=== PATIENT | female | born 2000 | race Two or more races ===

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

== ENCOUNTER 2022-09-30 10:04 | Outpatient (AMB) | payer OTHER, SELFPAY ==
--- NOTE | 2022-09-30 10:09 | A.OFFPC_ITS ---
Vital Signs 09/30/22 10:15 Height 4 ft 10.5 in Weight 103 lb BMI 21.2 BP 90/52 L Blood Pressure Location Rt brachial Position Sitting Pulse 71 Pulse Source Pulse Oximeter Pulse Oximetry (%) 99 Oxygen Delivery Method Room Air Intake Visit Reasons: New lovxvfx-Vvhzrb-Oowrlwzvgm scoliosis Intake Note: Pt is here today as a New Patient to est care/ asthma/ congential scoliosis Is last menstrual period known: Yes Last menstrual period: 09/15/22 Allergies Seasonal Allergies Allergy (Mild, Verified 06/20/23 21:56) runny nose, sneezing Medication List - Last Reconciled 06/20/23 by Neva Rucker MD albuterol sulfate 90 mcg/actuation 2 puffs inhalation Q4-6H PRN aripiprazole 5 mg PO DAILY hydroxyzine pamoate 25 mg PO TID ibuprofen 600 mg PO Q8H PRN Symbicort 160-4.5 mcg/actuation (budesonide-formoterol) 1 inh inhalation BID NS Tobacco use date assessed: 09/30/22 HPI New jmvzqyn-Zihghl-Qbmjhdjtpk scoliosis HPI Details 21 Lady here today to establish care wit h new PCP. She has history of mild intermittent asthma currently on Symbicort and has albuterol inhaler which she rarely been needing to use. She has been having intermittent episodes of palpitations accompanied by fainting spell which started when she was 18 years old. She has been seen by pediatric cardiology, Dr. Dinh, who she saw in 2019, diagnosed with vasovagal syncope. There are no known triggers however she would have symptoms of blurry vision, feeling lightheaded, feeling warm and nauseous prior to a syncopal attack, and would regain consciousness after about 10 seconds and would be fully alert. Has not exhibited any seizure-like activity. She maintains active lifestyle. Her 2 most recent syncopal episodes were without any clear triggers, which was preceded by blurry vision followed by lightheadedness. She is also currently being followed by Psychiatry, Casie rojo, for depression and anxiety [facility] Medical History (Updated 06/20/23 @ 22:30 by Neva Rucker MD) Family history of thyroid disorder Intermittent palpitations Mild intermittent asthma COVID-19 Asthma Chromosomal abnormality Leg length discrepancy Scoliosis Dysmenorrhea Vasovagal syncope Family History Mother No problems noted. Father No problems noted. Brother ADHD Sister Chronic mental disorder ADHD Mental health disorder Maternal Grandmother Cancer Mental health disorder Paternal Grandfather Substance use disorder Paternal Grandmother Substance use disorder Maternal Uncle Mental health disorder Social History Household Members: Family Housing: House Alcohol intake: never Patient Tobacco Use Status: Never used Tobacco e-Cigarette/Vaping Use: Never Used service: No Current occupational status: employed Cognitive needs: No Hearing needs: No Vision needs: Yes Female Reproductive History Menstrual Date of last menstrual period: 09/15/22 Questionnaire PHQ-9 Over the last 2 weeks, how often have you been bothered by any of the following problems? 1. Little interest or pleasure in doing things: more than half the days 2. Feeling down, depressed, or hopeless: nearly every day 3. Trouble falling or staying asleep, or sleeping too much: nearly every day 4. Feeling tired or having little energy: more than half the days 5. Poor appetite or overeating: nearly every day 6. Feeling bad about yourself - or that you are a failure or have let yourself or your family down: several days 7. Trouble concentrating on things, such as reading the newspaper or watching television: nearly every day 8. Moving or speaking so slowly that other people could have noticed. Or the opposite - being so fidgety or restless that you have been moving around a lot more than usual: nearly every day 9. Thoughts that you would be better off or of hurting yourself in some way: several days Total score: 21 Depression Screening Interpretation: Positive Depression Screening Follow-up: Existing condition and In treatment 07797 - PHQ-9 Billing: Yes Source: Developed by Drs. Lenny Hurst, Camille Blunt, Juan Ly and colleagues, with an educational alisa from [employer]. Thrive Questionnaire Date Thrive assessed: 09/30/22 I am a: Patient What is your living situation today?: I have a steady place to live Within the past 12 months, did the food you bought not last and you didn't have the money to get more?: Never true Within the past 12 months, did you worry whether your food would run out before you got money to buy more?: Never true Do you have trouble paying for medicines?: No Do you have trouble getting transportation to medical appointments?: No Do you have trouble paying your heating and electricity bill?: No Do you have trouble taking care of your child, family member or friend?: No Do you have trouble with day-to-day activities such as bathing, preparing meals, shopping, managing finances, etc.?: No Are you currently unemployed and looking for a job?: No Are you interested in more education?: No Please select the resources that you would like help with: Transportation and Daily support Currently or been in a relationship where the following occur: no concerns reported AUDIT C Alcohol Use Questionnaire (AUDIT-C) 1. How often do you have a drink containing alcohol?: Monthly or less 2. How many drinks containing alcohol do you have on a typical day when you are drinking?: 1 or 2 3. How often do you have six or more drinks on one occasion?: Never Total Score: 1 PATRICK-7 AMB Questionnaire PATRICK-7 Date PATRICK - 7 assessed: 09/30/22 Feeling nervous, anxious, or on edge: 3 = Nearly every day Not being able to stop or control worryin = More than half the days Worrying too much about different things: 3 = Nearly every day Trouble relaxin = Nearly every day Being so restless that it is hard to sit still: 3 = Nearly every day Becoming easily annoyed or irritable: 3 = Nearly every day Feeling afraid as if something awful might happen: 3 = Nearly every day Total PATRICK-7 score (0-4 normal; 5-9 mild; 10-14 moderate; 15-21 severe): 20 Source: Developed by Drs. Lenny Hurst, Camille Blunt, Juan Ly and colleagues, with an educational alisa from [employer]. PATRICK-7 Assessment Billing PATRICK-7 Assessment Tool: PATRICK-7 Assessment 41678 Review of Systems Const All systems reviewed & are unremarkable except as noted in HPI and below Eyes Denies change in vision ENT Denies dizziness Card Reports as per HPI, Denies chest pain, Denies pedal edema, Denies lightheadedness, Denies dyspnea and Denies dyspnea on exertion Resp Denies cough, Denies dyspnea and Denies dyspnea on exertion GI Denies hematochezia and Denies change in stool character Reports no additional complaints Musc Denies abnormal gait, Denies limited range of motion, Denies muscle cramps, Denies muscle weakness, Denies numbness, Denies stiffness and Denies tingling Skin/Breast Denies breast pain, Denies breast mass and Denies rash Neuro Denies abnormal gait, Denies dizziness, Denies numbness and Denies tingling Psych Reports as per HPI Endo Reports no additional complaints Veto/Lymph Reports no additional complaints Aller/Immun Reports no additional complaints Physical exam (Primary Care) Vital Signs: Last Vital Signs Pulse 71 09/30/22 10:15 BP 90/52 L 09/30/22 10:15 Pulse Ox 99 09/30/22 10:15 Oxygen Delivery Method Room Air 09/30/22 10:15 BMI result Body Mass Index 21.2 Tobacco/Smoking Status: Tobacco use Status Tobacco use date assessed 09/30/22 09/30/22 10:17 Patient Tobacco Use Status Never used Tobacco 09/30/22 10:17 e-Cigarette/Vaping Use Never Used 09/30/22 10:17 PHQ-9: PHQ-9 Score PHQ-9: Total score 21 09/30/22 11:17 Depression Screening Interpretation: Positive Depression Screening Follow-up: Existing condition and In treatment Thrive Assessment: Date of Thrive Assessment Date Thrive assessed 09/30/22 09/30/22 10:24 Currently or been in a relationship where the following occur: no concerns reported Const General: comfortable, no acute distress and alert Orientation/consciousness: patient oriented x3 HENMT Ears: external ears normal, TM's normal bilaterally and EAC's normal General nose exam: Normal external nose present and No nasal discharge present Mouth: Normal oral and palatal mucosa present, oropharynx normal and moist mucous membranes Eyes General: appearance normal, both eyes and all related structures Conjunctivae: conjunctivae normal Sclerae: sclerae normal Pupils: Equal, round and reactive pupils present EOM: EOMs intact bilaterally Neck Neck: Yes full ROM, Yes no lymphadenopathy and Yes supple Resp Effort & Inspection: normal respiratory effort and able to speak in complete sentences Auscultation: clear to auscultation bilaterally Cardio Rate: regular rate Rhythm: regular rhythm Heart sounds: S1 normal heart sound present and S2 normal heart sound present GI Palpation (GI): Soft to palpation, nontender and no masses Auscultation: normal bowel sounds Back/Spine/Pelvis Back: No back tenderness Skin General skin exam: no rashes or lesions noted Neuro General: patient oriented x3, gait normal, tone normal, moves all extremities, Normal light touch and pain sensation and no focal motor deficits Cranial nerves: Yes CN's II-XII intact bilaterally and Yes Equal, round and reactive pupils present Cognition (Neuro): normal cognition Extrem General: Yes full ROM, Yes no joint enlargement, Yes no clubbing, cyanosis or edema and Yes no calf tenderness Psych Appearance: grossly normal and well kempt Mental Status: mental status grossly normal Speech and movement: Normal speech and movement present Affect: normal affect Attitude: cooperative Thought process: Normal thought process present Thought content: Normal thought content present and no homicidality Immunizations pneumoc 20-wilmer conj-dip cr(PF) 0.5 mL IM syringe Performing Provider: Neva Rucker MD Performing Location: [facility] Administered by: Mora Brewster CMA on 09/30/22 11:49 Dose Route Admin Location Dispensed Lot Number Expiration Date NDC Document Coordinator 0.5 mL IM Right Deltoid 0.5 mL [id number] 01/24/24 4715-4820-36 [employer] VIS Given Date VIS Provided VIS Publication Date 09/30/22 Single Vaccine 21 Eligibility Eligibility Date Funding Source Not [facility] Eligible 09/30/22 Private Assessment and Plan Assessment & Plan (1) Mild intermittent asthma: Code(s): J45.20 - Mild intermittent asthma, uncomplicated Qualifiers: Asthma complication type: uncomplicated Qualified Code(s): J45.20 - Mild intermittent asthma, uncomplicated Plan: Controlled, Symbicort discontinued due to being non formulary and switched to QVAR RediHaler, to use as directed, and albuterol inhaler as needed. Prevnar 20 given today (2) Vasovagal syncope: Comment: seen by cards (Dr Dinh) (02/12). No further w/u or f/u needed. Code(s): R55 - Syncope and collapse Plan: Still having recurrent episodes of syncopal attacks, will refer to Cardiology further evaluation and management (3) Intermittent palpitations: Code(s): R00.2 - Palpitations Plan: Referred to cardiology, TSH with free T4 ordered Orders: Orders Pneumococcal 20 Immunization 09/30/22 Z23 - Encounter for immunization TSH reflex Free T4 09/30/22 R00.2 - Palpitations, Z83.49 - Family history of other endocrine, nutritional and metabolic diseases Referrals Cardiology Referral R55 - Syncope and collapse, R00.2 - Palpitations Medications: New beclomethasone dipropionate 80 mcg/actuation (Qvar RediHaler) administer with spacer 1 inh inhalation Q12H 10.6 grams 0RF J45.20 - Mild intermittent asthma, uncomplicated Coding Level of Care Code New Pt Level 3 (31573) Diagnoses Mild intermittent asthma without complication J45.20 Asthma complication type: uncomplicated Vasovagal syncope R55 Intermittent palpitations R00.2 Additional Codes PATRICK-7 Assessment Billing - PATRICK-7 Assessment Tool: PATRICK-7 Assessment [id number] ([id number])
[2022-09-30 10:15] VITALS: BP 90/52; PULSE 71; O2SAT 99; BMI 21.2
== END 2022-09-30 11:18 | disposition home or self-care (01) ==
PROVIDERS: PCP Internal Medicine; Visit Provider Internal Medicine
DX: J45.20 Mild intermittent asthma, uncomplicated (principal); R55 Syncope and collapse; R00.2 Palpitations
CPT/HCPCS: 99203; 99499

== ENCOUNTER 2022-12-22 11:00 | Outpatient (AMB) | payer OTHER, SELFPAY ==
--- NOTE | 2022-12-22 11:08 | MHC.OFFVIS ---
Intake Vital Signs 12/22/22 11:10 12/22/22 11:23 12/22/22 11:25 Height 4 ft 10 in Weight 103 lb 9.876 oz BMI 21.7 BP 100/62 109/65 103/64 Blood Pressure Location Lt brachial Lt brachial Lt brachial Position Supine Sitting Standing Pulse 71 72 71 Intake Visit Reasons: NPV/Syncope/Palpitations Intake Note: New patient dx syncope and palpitations with ekg and orthostatic bp Director Weights And Measures Required: No Social Human Services Assistants: Social Human Services Assistants Present Accompanied by: Mother Allergies Seasonal Allergies Allergy (Mild, Verified 09/30/22 10:37) runny nose, sneezing Medication List - Last Reconciled 12/22/22 by Rey Dixon MD albuterol sulfate 90 mcg/actuation 2 puffs inhalation Q4-6H PRN hydroxyzine pamoate 25 mg PO TID ibuprofen 600 mg PO Q8H PRN Symbicort 160-4.5 mcg/actuation (budesonide-formoterol) 1 inh inhalation BID NS HPI HPI Comments History of Present Illness Details Thank you for referring Serenity in cardiology consultation today for syncope. She is a pleasant 22-year-old female, accompanied by her mother. She has history of asthma which is mild and intermittent. She has had history of syncope since age of 18. She describes multiple events although she is most concerned about to recent events. The 1st event happen in the setting of her noxious stimuli at age of 18. Symptoms are very typical with symptoms of blurry vision, feeling lightheaded, feeling warm and nauseous. Patient's then passes out. Noted by observers to be very pale and diaphoretic. Patient usually regained consciousness within 10 seconds and is fully alert. She has no seizure-like activity. Mother is worried as she has a child had a murmur. However she has not noted any significant structural heart issues. She is otherwise very active. She maintains active lifestyle. She does not drink adequate amount of fluid. Her job also in [employer] prolonged standing. It 2 most recent episodes were without any clear triggers but were triggered in an upright position. Both of them had clear blurry vision followed by lightheadedness. Patient clearly knows that if she does not take care of which she passes out. [facility] Medical History Asthma Chromosomal abnormality COVID-19 Dysmenorrhea Family history of thyroid disorder Intermittent palpitations Leg length discrepancy Mild intermittent asthma Scoliosis Syncope Vasovagal syncope Family History Mother No problems noted. Father No problems noted. Brother ADHD Sister Chronic mental disorder ADHD Mental health disorder Maternal Grandmother Cancer Mental health disorder Paternal Grandfather Substance use disorder Paternal Grandmother Substance use disorder Maternal Uncle Mental health disorder Social History Household Members: Family Housing: House Alcohol intake: never Patient Tobacco Use Status: Never used Tobacco e-Cigarette/Vaping Use: Never Used service: No Current occupational status: employed Cognitive needs: No Hearing needs: No Vision needs: Yes Review of Systems Const Denies chills, Denies daytime sleepiness, Denies fatigue, Denies fever(s), Denies frequent falls, Denies poor appetite, Denies snoring, Denies stops breathing during sleep, Denies weakness, Denies weight gain and Denies weight loss Eyes Denies loss of vision ENT Denies dizziness and Denies hearing loss Card Denies chest pain, Denies claudication, Denies leg edema, Denies lightheadedness, Denies palpitations, Denies dyspnea, Denies dyspnea on exertion and Denies orthopnea Resp Denies cough, Denies excessive phlegm production, Denies dyspnea, Denies dyspnea on exertion, Denies snoring and Denies wheezing GI Denies abdominal pain, Denies hematochezia, Denies change in bowel habits, Denies nausea and Denies vomiting Denies urinary frequency and Denies dysuria Musc Denies arthralgias, Denies muscle weakness, Denies numbness and Denies other (frequent falls) Skin/Breast Denies nail changes and Denies rash Neuro Denies Abnormal speech present, Denies dizziness, Denies frequent falls, Denies loss of vision, Denies memory loss, Denies numbness and Denies weakness Psych Denies depression and Denies memory loss Endo Denies fatigue and Denies palpitations Veto/Lymph Reports easy bruising and Reports other (anemia) Aller/Immun Denies wheezing Physical Exam Vital Signs: Last Vital Signs Pulse 71 12/22/22 11:25 BP 103/64 12/22/22 11:25 BMI result Body Mass Index 21.7 Const General: cooperative, comfortable, no acute distress, alert and awake Nutritional Appearance: well nourished and thin Orientation/consciousness: patient oriented x3 Limitations: no limitations HEENT Head: Yes normocephalic and Yes atraumatic Neck Neck: Yes trachea midline, Yes supple and Yes no JVD Resp Effort & Inspection: normal respiratory effort Auscultation: clear to auscultation bilaterally Cardio Jugular venous distension: no JVD Rate: regular rate Rhythm: regular rhythm Heart sounds: S1 normal heart sound present, S2 normal heart sound present, no click, no gallops, no murmurs and no rubs GI Auscultation: normal bowel sounds Skin General skin exam: no rashes or lesions noted Neuro General: patient oriented x3 and no focal motor deficits Speech: No Abnormal speech present Extrem General: Yes no clubbing, cyanosis or edema Office Procedures EKG Details: EKG shows normal sinus rhythm with normal EKG with normal axis and normal intervals with no preexcitation [id number], Complete Assessment & Plan Assessment & Plan (1) Syncope: Code(s): R55 - Syncope and collapse Plan: patient presents with symptoms are highly consistent with vasovagal or reflex syncope. Had a detailed discussion about the pathophysiology of vasovagal syncope. We discussed about potential trigger mechanisms. We discussed about interventions. Would like to further test her autonomic function with head-up tilt-table test and to assess for hemodynamic response. If she has significant bradycardic response and/ or cardio inhibitory vasovagal syncope could benefit from pacer therapy. Advised to maintain adequate hydration and salt intake. Discussed about lifestyle modification as well and avoidance of agent such as caffeine and alcohol. Also avoidance of prolonged standing was discussed. Achieving supine and or sitting position with abdominal compression can also abort of full syncopal episode and this was discussed with her. Follow up in the clinic after testing. Thank you for allowing me to partake in her care Orders: Orders CA echo transthoracic complete Today R55 - Syncope and collapse ECG holter monitor 48 hour Today R55 - Syncope and collapse ECG Tilt Table Test Today R55 - Syncope and collapse Coding Level of Care Code New Pt Level 4 (65370) Diagnoses Syncope R55 CPT Codes EKG - CPT: [id number], Complete ([id number])
[2022-12-22 11:10] VITALS: BP 100/62; PULSE 71; BMI 21.7
[2022-12-22 11:23] VITALS: BP 109/65; PULSE 72
[2022-12-22 11:25] VITALS: BP 103/64; PULSE 71
== END 2022-12-22 11:43 | disposition home or self-care (01) ==
PROVIDERS: PCP Internal Medicine; Referring Provider Internal Medicine; Visit Provider Internal Medicine Cardiovascular Disease
DX: R55 Syncope and collapse (principal)
CPT/HCPCS: 93010; 99204

== ENCOUNTER → 2022-12-22 11:00 | Outpatient (BNVA) | payer OTHER, SELFPAY | PROVIDERS: PCP Internal Medicine; Referring Provider Internal Medicine; Visit Provider Internal Medicine Cardiovascular Disease | DX: R55 Syncope and collapse (principal) | CPT/HCPCS: 93005; 99202 ==

== ENCOUNTER → 2023-01-20 07:51 | Outpatient (REF) | payer OTHER, SELFPAY ==
--- NOTE | 2023-01-20 08:10 | HM_ITS ---
Conclusion: 1. Patient was monitored for total period of 2 days 2. Baseline was normal sinus with average heart of 70 beats per minute 3. Rare PACs noted next 4. No significant pauses noted 5. Patient reported 4 events with symptoms of lightheadedness or fast heart rate that correlated with sinus rhythm MTDD
--- NOTE | 2023-01-20 08:10 | CA_ITS ---
Transthoracic Echocardiogram Patient (Last, First, Middle): Jocelyn Bowens, Gender: Female Date of : 2000 Age: 22 Procedure Date: 01/20/2023 Procedure Type: Transthoracic Echocardiogram Location: OP Height: 149.86 cm Weight: 46.72 kg BSA: 1.39 m2 Heart Rate: bpm BP: 96 / 62 mmHg Crutch Maker: TEJA Referring MD: Rey Dixon MD Front Sight Attacher: Rey Dixon MD Symptoms: R55 - Syncope and collapse Study Quality: Good ECG Rhythm: Sinus Conclusions: - Normal study Findings Left Ventricle Normal left ventricular size, thickness, and systolic function. The visually estimated ejection fraction is between 60-65%. Diastolic function is normal for age. Peak GLS is -19%, within normal limits. Right Ventricle Normal right ventricular cavity size and systolic function. Atria Both atria are normal in size. Interatrial shunt cannot be excluded. Aortic Valve Normal aortic valve structure and function. There is no aortic valve stenosis. There is no aortic valve regurgitation. Mitral Valve Normal mitral valve structure and function. There is trace mitral valve regurgitation. There is no mitral valve stenosis. Pulmonic Valve The pulmonic valve is likely normal. There is trace to mild pulmonic valve regurgitation. Tricuspid Valve Normal tricuspid valve structure. There is trace tricuspid valve regurgitation. The right ventricular systolic pressure is normal. The right ventricular systolic pressure is 20 mmHg. Normal right atrial pressure. There is no evidence of pulmonary hypertension. Great Vessels All visible segments of the aorta are normal in size. The pulmonary artery was not well visualized. Venous The inferior vena cava is normal in size and collapses greater than 50% with inspiration. Pericardium/Pleural There is no evidence of pericardial effusion. Prior Study Comparison No prior study available for comparison. Measurements 2D Linear Measurements IVSd: 0.80 0.6-0.9/0.6-1.0 cm LVIDd: 3.70 3.9-5.3/4.2-5.9 cm LVIDd Index: 2.66 2.4-3.2/2.2-3.1 cm/m2 LVIDs: 2.40 2.0-3.6 cm LVPWd: 0.70 0.7-1.1 cm LA Diam: 2.30 2.7-3.8/3.0-4.0 cm LAIDs Index: 1.65 1.5-2.3 cm/m2 LV Mass: 93.55 67-162/88-224 g LV Mass Index: 67.30 43-95/49-115 g/m2 LVOT Diam: 1.80 3.0+(-)1.3 cm 2D Systolic Function EF 4C: 61.80 >55% EF 2C: 65.30 >55% EF BiP: 64.20 >55% Mitral Valve MV Pk E: 1.02 MV PK A: 0.30 MV Decel Time: 213.00 E/A: 3.40 E'Lateral: 17.80 E'Medial: 14.80 E/E' Med: 6.90 E/E' Lat: 5.70 PHT: 62.00 MVA PHT: 3.55 Decel Ingham: 4.79 Aortic Valve AoV Pk Minh: 1.29 AoV Mn Minh: 0.85 AoV VTI: 0.33 AoV Pk Grad: 7.00 Aov Mn Grad: 3.00 SUSAN Cont.VTI: 1.60 LVOT LVOT Pk Minh: 0.81 LVOT Mn Minh: 0.57 LVOT VTI: 0.21 LVOT Pk Grad: 3.00 LVOT Mn Grad: 1.00 LVOT Diam: 1.80 LVOT Area: 2.54 Diastolic Function MV Pk E: 1.02 MV Pk A: 0.30 E/A: 3.40 E'Medial: 14.80 E/E' Med: 6.90 E' Laterial: 17.80 E/E' Lat: 5.70 Right Ventricle TAPSE (mm): 28.00 TVS' Minh: 12.20 Tricuspid Valve TR Pk Minh: 2.08 TR Pk Grad: 17.00 RA Press: 3.00 RVSP: 20.00 Great Vessels Aorta Sinus of Valsalva: 2.70 2.0-3.5 cm Ao Asc: 2.00 2.1-3.4 cm Ao Arch: 2.10 Updated in Other Vendor System with Status of Final Rey Dixon MD electronically signed on 01/20/2023 4:27:49 PM with status of Final
== END ==
LOC: HO.CARD 07:51
PROVIDERS: PCP Internal Medicine; Visit Provider Internal Medicine Cardiovascular Disease
DX: R55 Syncope and collapse (principal)
CPT/HCPCS: 93225; 93306

== ENCOUNTER → 2023-01-20 08:10 | Outpatient (BNV) | payer OTHER, SELFPAY | PROVIDERS: PCP Internal Medicine; Visit Provider Internal Medicine Cardiovascular Disease | DX: I49.1 Atrial premature depolarization (principal) | CPT/HCPCS: 93227; 93306 ==

== ENCOUNTER 2023-03-09 08:00 | Outpatient (AMB) | payer OTHER, SELFPAY ==
[2023-03-09 08:13] VITALS: BP 104/64; PULSE 78; BMI 20.5
--- NOTE | 2023-03-09 08:13 | A.OFFVIS_ITS ---
Intake Vital Signs 03/09/23 08:13 Height 4 ft 10 in Weight 98 lb 5.219 oz BMI 20.5 BP 104/64 Pulse 78 Pulse Source Pulse Oximeter Intake Visit Reasons: fu tilt/echo/48 hr holter (NS) Correctional Supervising Cook Required: No Allergies Seasonal Allergies Allergy (Mild, Verified 03/09/23 08:15) runny nose, sneezing Medication List - Last Reconciled 03/09/23 by Janeen Perkins, GUARD CAPTAIN-C albuterol sulfate 90 mcg/actuation 2 puffs inhalation Q4-6H PRN aripiprazole 5 mg PO DAILY hydroxyzine pamoate 25 mg PO TID ibuprofen 600 mg PO Q8H PRN Symbicort 160-4.5 mcg/actuation (budesonide-formoterol) 1 inh inhalation BID NS HPI fu tilt/echo/48 hr holter (NS) HPI Details Austenenibrian is a 23-year-old female with past medical history of syncopal events who recently underwent cardiac testing and now presents for follow-up. Today she reports that she has not had any recurrent syncope since her last visit. Her last episode did occur with her talking on the phone in her home without any known trigger. She has episodes of lightheadedness at times with no presyncope. She will feel intermittent heart palpitations, not clearly associated with lightheadedness. No chest discomfort at rest with activity. No concerning shortness of breath, PND, orthopnea or edema. She has good activity tolerance. Mother is present. [facility] Medical History Syncope Family history of thyroid disorder Intermittent palpitations Mild intermittent asthma COVID-19 Asthma Chromosomal abnormality Leg length discrepancy Scoliosis Dysmenorrhea Vasovagal syncope Family History Mother No problems noted. Father No problems noted. Brother ADHD Sister Chronic mental disorder ADHD Mental health disorder Maternal Grandmother Cancer Mental health disorder Paternal Grandfather Substance use disorder Paternal Grandmother Substance use disorder Maternal Uncle Mental health disorder Social History Household Members: Family Housing: House Alcohol intake: never Patient Tobacco Use Status: Never used Tobacco e-Cigarette/Vaping Use: Never Used service: No Current occupational status: employed Cognitive needs: No Hearing needs: No Vision needs: Yes Review of Systems Const All systems reviewed & are unremarkable except as noted in HPI and below ENT Denies dizziness Card Denies chest pain, Denies chest pain at rest, Denies chest pain with activity, Denies rapid heart rate, Denies pedal edema, Denies edema, Denies leg edema, Denies lightheadedness, Denies palpitations, Denies dyspnea, Denies dyspnea on exertion and Denies orthopnea Resp Denies cough, Denies dyspnea and Denies dyspnea on exertion GI Denies hematochezia and Denies change in stool character Musc Denies abnormal gait, Denies limited range of motion, Denies muscle cramps, Denies muscle weakness, Denies numbness, Denies radiating pain into limb, Denies stiffness and Denies tingling Neuro Denies abnormal gait, Denies dizziness, Denies numbness and Denies tingling Endo Denies palpitations Physical Exam Vital Signs: Last Vital Signs Pulse 78 03/09/23 08:13 BP 104/64 03/09/23 08:13 BMI result Body Mass Index 20.5 Const General: cooperative, healthy appearing, comfortable and no acute distress Orientation/consciousness: patient oriented x3 Neck Neck: Yes normal visual inspection and Yes no JVD Carotids: normal carotid upstroke Resp Effort & Inspection: normal respiratory effort Auscultation: clear to auscultation bilaterally, no crackles, no rales, no rhonchi and no wheezes Cardio Jugular venous distension: no JVD Rate: regular rate Rhythm: regular rhythm Heart sounds: S1 normal heart sound present, S2 normal heart sound present, no murmurs and no rubs Neuro General: patient oriented x3 Extrem General: Yes normal to inspection, No no pedal edema and No calf tenderness Psych Appearance: grossly normal Mental Status: mental status grossly normal Speech and movement: Normal speech and movement present Assessment & Plan Assessment & Plan (1) Vasovagal syncope: Comment: seen by cards (Dr Dinh) (02/12). No further w/u or f/u needed. Code(s): R55 - Syncope and collapse Plan: History of syncopal events since age 18. Episodes involve lightheadedness, blurred vision, feeling warm and nauseous. Symptoms suggestive of vasovagal syncope. Echocardiogram was done 01/20/2023 which was normal. Holter monitor done 01/20/2023 for 2 days showed sinus rhythm with average heart rate 70, rare PACs, symptoms of lightheadedness and fast heart rate correlated with sinus rhythm. She underwent a tilt-table test on 02/23/2023 with presyncopal event, documented junctional rhythm with heart rate into the 30s, hypotension. Confirm diagnosis of vasovagal syncope. All test results reviewed with her in detail. Patient has been instructed on increasing fluid intake, increased salt intake. Recognizing symptoms, avoiding any known triggers, sitting or laying down if she develops symptoms. Avoid prolonged standing if able. No indication for pacemaker placement. Cardiology follow-up to re-evaluate condition in 6 months, sooner if needed. Coding Level of Care Code Est Pt Level 3 (70690) Diagnoses Vasovagal syncope R55 Time Spent (min) 24
== END 2023-03-09 08:44 | disposition home or self-care (01) ==
PROVIDERS: PCP Internal Medicine; Visit Provider Nurse Practitioner Family
DX: R55 Syncope and collapse (principal)
CPT/HCPCS: 99213

== ENCOUNTER → 2023-03-09 08:00 | Outpatient (BNVA) | payer OTHER, SELFPAY | PROVIDERS: PCP Internal Medicine; Visit Provider Nurse Practitioner Family | DX: R55 Syncope and collapse (principal) | CPT/HCPCS: 99212 ==

== ENCOUNTER 2023-09-13 08:45 | Outpatient (AMB) | payer OTHER, SELFPAY ==
[2023-09-13 08:49] VITALS: BP 110/70; PULSE 67; BMI 20.3
--- NOTE | 2023-09-13 08:49 | MHC.OFFVIS ---
Vital Signs 09/13/23 08:49 Height 4 ft 10 in Weight 97 lb 0.054 oz BMI 20.3 BP 110/70 Blood Pressure Location Lt brachial Pulse 67 Intake Visit Reasons: 6 mth f/up Intake Note: 6 month follow-up feeling good Kiln Car Repairer Required: No Vein Access Technician: Vein Access Technician Present Accompanied by: Mother Allergies Seasonal Allergies Allergy (Mild, Verified 06/20/23 21:56) runny nose, sneezing Medication List - Last Reconciled 09/13/23 by Rey Dixon MD albuterol sulfate 90 mcg/actuation 2 puffs inhalation Q4-6H PRN aripiprazole 5 mg PO DAILY hydroxyzine pamoate 25 mg PO TID ibuprofen 600 mg PO Q8H PRN Symbicort 160-4.5 mcg/actuation (budesonide-formoterol) 1 inh inhalation BID NS HPI Comments Details: Se[facility]ity comes for follow-up. They feel that their symptoms of syncope/near-syncope have improved although she continues to have episode. She has increased her fluid intake but only drinking about 38 oz a day. Has also increase her salt intake. They have not had any significant full syncopal episode. [facility] Medical History Family history of thyroid disorder Intermittent palpitations Mild intermittent asthma COVID-19 Asthma Chromosomal abnormality Leg length discrepancy Scoliosis Dysmenorrhea Vasovagal syncope Family History Mother No problems noted. Father No problems noted. Brother ADHD Sister Chronic mental disorder ADHD Mental health disorder Maternal Grandmother Cancer Mental health disorder Paternal Grandfather Substance use disorder Paternal Grandmother Substance use disorder Maternal Uncle Mental health disorder Social History Household Members: Family Housing: House Alcohol intake: never Patient Tobacco Use Status: Never used Tobacco e-Cigarette/Vaping Use: Never Used service: No Current occupational status: employed Cognitive needs: No Hearing needs: No Vision needs: Yes Review of Systems Const Denies chills, Denies fatigue, Denies fever(s), Denies frequent falls, Denies weakness, Denies weight gain and Denies weight loss ENT Denies dizziness Card Denies chest pain, Denies leg edema, Denies lightheadedness, Denies palpitations, Denies dyspnea, Denies dyspnea on exertion, Denies orthopnea and Denies other (loss of consciousness) Resp Denies cough, Denies dyspnea and Denies dyspnea on exertion GI Denies hematochezia and Denies change in stool character Musc Denies abnormal gait, Denies muscle weakness, Denies numbness, Denies radiating pain into limb and Denies tingling Neuro Denies abnormal gait, Denies dizziness, Denies frequent falls, Denies numbness, Denies tingling and Denies weakness Endo Denies fatigue and Denies palpitations Physical Exam Vital Signs: Last Vital Signs Pulse 67 09/13/23 08:49 BP 110/70 09/13/23 08:49 BMI result Body Mass Index 20.3 Const General: cooperative, healthy appearing, comfortable and no acute distress Orientation/consciousness: patient oriented x3 Neck Neck: Yes normal visual inspection and Yes no JVD Carotids: normal carotid upstroke Resp Effort & Inspection: normal respiratory effort Auscultation: clear to auscultation bilaterally, no crackles, no rales, no rhonchi and no wheezes Cardio Jugular venous distension: no JVD Rate: regular rate Rhythm: regular rhythm Heart sounds: S1 normal heart sound present, S2 normal heart sound present, no murmurs and no rubs Neuro General: patient oriented x3 Extrem General: Yes normal to inspection, No no pedal edema and No calf tenderness Psych Appearance: grossly normal Mental Status: mental status grossly normal Speech and movement: Normal speech and movement present Assessment & Plan Assessment & Plan (1) Vasovagal syncope: Comment: seen by cards (Dr Dinh) (02/12). No further w/u or f/u needed. Code(s): R55 - Syncope and collapse Category: Medical Plan: Vasovagal syncope as noted by tilt-table testing. Mechanism of this was discussed again. I have advised them to significantly increase her fluid intake to up to 80 oz a day. Also maximize their salt intake. Orthostatic precautions were discussed. They showed understanding. I would avoid starting any pharmacotherapy at this point in time. Overall benign nature of vasovagal syncope was discussed. I would suggest given their job to wear compression stockings thigh length to help with theire orthostatic symptoms. Will follow up in the clinic in 1 year's time, sooner p.r.n.. Thank you for allowing me to partake in their care Coding Level of Care Code Est Pt Level 3 (57342) Diagnoses Vasovagal syncope R55
== END 2023-09-13 09:05 | disposition home or self-care (01) ==
PROVIDERS: PCP Internal Medicine; Visit Provider Internal Medicine Cardiovascular Disease
DX: R55 Syncope and collapse (principal)
CPT/HCPCS: 99213

== ENCOUNTER → 2023-09-13 08:45 | Outpatient (BNVA) | payer OTHER, SELFPAY | PROVIDERS: PCP Internal Medicine; Visit Provider Internal Medicine Cardiovascular Disease | DX: R55 Syncope and collapse (principal) | CPT/HCPCS: 99212 ==

== ENCOUNTER 2023-10-08 09:27 | Outpatient (AMB) | payer OTHER, SELFPAY ==
--- NOTE | 2023-10-08 09:28 | MHC.PC.OV ---
Vital Signs 10/08/23 09:30 Height 4 ft 10 in Weight 97 lb BMI 20.3 BP 108/68 Blood Pressure Location Lt brachial Position Sitting Pulse 67 Pulse Source Pulse Oximeter Pulse Oximetry (%) 99 Oxygen Delivery Method Room Air Intake Visit Reasons: PE Intake Note: pt is here for annual PE. Has not had pap Allergies Seasonal Allergies Allergy (Mild, Verified 10/08/23 09:48) runny nose, sneezing Medication List - Last Reconciled 10/08/23 by RAFFI Louie albuterol sulfate 90 mcg/actuation 2 puffs inhalation Q4-6H PRN aripiprazole 7.5 mg PO DAILY comp.stocking,thigh,long,small As directed hydroxyzine pamoate 25 mg PO TID ibuprofen 600 mg PO Q8H PRN Symbicort 160-4.5 mcg/actuation (budesonide-formoterol) 1 inh inhalation BID NS Tobacco use date assessed: 10/08/23 Dental Screening Dental Screen Date: 10/08/23 Did you have a dental visit in the last 12 months?: No Did you have a dental problem in the last 6 months where you did not have access to dental care?: No Was dental information given to patient?: Yes HPI HPI Comments History of Present Illness Details Patient is 23-year-old who I am meeting for the 1st time. Patient is up-to-date with Tdap. She was given Prevnar 20 at previous appointment. Will order fasting labs today. Patient has a past medical history significant for: Intermittent asthma-utilizes Symbicort and albuterol inhaler with good effect. Use of albuterol is infrequent. Anxiety depression-patient has establish care with psychiatry. Utilizing aripiprazole 7.5 mg p.o. daily and hydroxyzine 25 mg TID p.r.n. Vasovagal syncope-patient had positive tilt-table test at [facility]. He does have establish care with [facility]. Has been instructed to increase salt and water intake. Having less frequent episodes over the past year. [facility] Medical History Family history of thyroid disorder Intermittent palpitations Mild intermittent asthma COVID-19 Asthma Chromosomal abnormality Leg length discrepancy Scoliosis Dysmenorrhea Vasovagal syncope Surgical History No pertinent past surgical history Family History Mother No problems noted. Father No problems noted. Brother ADHD Sister Chronic mental disorder ADHD Mental health disorder Maternal Grandmother Cancer Mental health disorder Paternal Grandfather Substance use disorder Paternal Grandmother Substance use disorder Maternal Uncle Mental health disorder Social History Household Members: Family Housing: House Alcohol intake: never Patient Tobacco Use Status: Never used Tobacco e-Cigarette/Vaping Use: Never Used Substance Use Type: Marijuana service: No Current occupational status: employed Cognitive needs: No Hearing needs: No Vision needs: Yes Questionnaire PHQ-9 Over the last 2 weeks, how often have you been bothered by any of the following problems? 1. Little interest or pleasure in doing things: more than half the days 2. Feeling down, depressed, or hopeless: more than half the days 3. Trouble falling or staying asleep, or sleeping too much: nearly every day 4. Feeling tired or having little energy: nearly every day 5. Poor appetite or overeating: several days 6. Feeling bad about yourself - or that you are a failure or have let yourself or your family down: several days 7. Trouble concentrating on things, such as reading the newspaper or watching television: not at all 8. Moving or speaking so slowly that other people could have noticed. Or the opposite - being so fidgety or restless that you have been moving around a lot more than usual: not at all 9. Thoughts that you would be better off or of hurting yourself in some way: several days Total score: 13 Depression Screening Interpretation: Positive (Patient had a rib preserve all increased from 5 to 7.5 mg by Psychiatry.) Depression Screening Follow-up: In treatment and Change in Medication Depression Screening Done: Yes 62274 - PHQ-9 Billing: Yes Source: Developed by Drs. Lenny uHrst, Camille Blunt, Juan Ly and colleagues, with an educational alisa from [employer]. Thrive Questionnaire Date Thrive assessed: 10/08/23 I am a: Patient What is your living situation today?: I have a steady place to live Within the past 12 months, did the food you bought not last and you didn't have the money to get more?: Never true Within the past 12 months, did you worry whether your food would run out before you got money to buy more?: Never true Do you have trouble paying for medicines?: No Do you have trouble getting transportation to medical appointments?: No Do you have trouble paying your heating and electricity bill?: No Do you have trouble taking care of your child, family member or friend?: No Do you have trouble with day-to-day activities such as bathing, preparing meals, shopping, managing finances, etc.?: No Are you currently unemployed and looking for a job?: No Are you interested in more education?: No Please select the resources that you would like help with: None Currently or been in a relationship where the following occur: no concerns reported THRIVE Score: 0 AUDIT C Alcohol Use Questionnaire (AUDIT-C) 1. How often do you have a drink containing alcohol?: 2-4 times a month 2. How many drinks containing alcohol do you have on a typical day when you are drinking?: 1 or 2 3. How often do you have six or more drinks on one occasion?: Less than monthly Total Score: 3 PATRICK-7 AMB Questionnaire PATRICK-7 Date PATRICK - 7 assessed: 10/08/23 Feeling nervous, anxious, or on edge: 1 = Several days Not being able to stop or control worryin = Several days Worrying too much about different things: 1 = Several days Trouble relaxin = Not at all Being so restless that it is hard to sit still: 0 = Not at all Becoming easily annoyed or irritable: 3 = Nearly every day Feeling afraid as if something awful might happen: 1 = Several days Total PATRICK-7 score (0-4 normal; 5-9 mild; 10-14 moderate; 15-21 severe): 7 Source: Developed by Drs. Lenny Hurst, Camille Blunt, Juan Ly and colleagues, with an educational alisa from [employer] PATRICK-7 Assessment Billing PATRICK-7 Assessment Tool: PATRICK-7 Assessment 32397 Review of Systems Const All systems reviewed & are unremarkable except as noted in HPI and below Skin/Breast Reports rash (Abdomen) Physical exam (Primary Care) Care Plan Goal for BP management: BP controlled Tobacco/Smoking Status: Tobacco use Status Tobacco use date assessed 09/30/22 09/30/22 10:17 Patient Tobacco Use Status Never used Tobacco 09/30/22 10:17 e-Cigarette/Vaping Use Never Used 09/30/22 10:17 Depression Screening Interpretation: Positive (Patient had a rib preserve all increased from 5 to 7.5 mg by Psychiatry.) Depression Screening Follow-up: In treatment and Change in Medication Thrive Assessment: Date of Thrive Assessment Date Thrive assessed 09/30/22 09/30/22 10:24 Currently or been in a relationship where the following occur: no concerns reported Forms completed: Health Care Proxy Time spent: 1-15 minutes, on File Const Other: Appearance: Alert.? Oriented X3.? No acute distress.? Head: Normocephalic. Eyes: Pupils equal, round and reactive to light.?Sclera white. ENT: Pharynx normal.?TM intact and pearly nava. Neck: Normal inspection.? Neck supple.? CVS: Normal heart rate and rhythm.? Pulses normal.? Respiratory: No respiratory distress.? Breath sounds normal.? Abdomen: Soft and nontender.? Skin: Small erythematous patches on abdomen. No discharge. No signs of infection. Extremities: No lower extremity edema.? No calf ttp. 5/5 strength to bilateral upper and lower extremities Back: No midline tenderness, no C-spine tenderness, full range of motion, no CVA tenderness bilaterally Neuro: Oriented X 3.? No motor deficit.? No sensory deficit. CN 2-12 intact Assessment and Plan Assessment & Plan (1) Encounter for physical examination: Comment: Will draw labs today. Patient had healthcare proxy she form scanned in uploaded to her file. Had Prevnar 20 immunization at previous visit 1 year prior. Patient will get ambulatory technologist referral today. Code(s): Z00.00 - Encounter for general adult medical examination without abnormal findings (2) Vasovagal syncope: Comment: Patient has establish care with Cardiology. Has been ordered compressions stockings by them has not yet utilize them will pick them up today. Patient has also been educated to increase her fluid intake. Code(s): R55 - Syncope and collapse (3) Mild intermittent asthma: Comment: Utilizing Symbicort with good effect. Infrequent use of albuterol sulfate Code(s): J45.20 - Mild intermittent asthma, uncomplicated Qualifiers: Asthma complication type: uncomplicated Qualified Code(s): J45.20 - Mild intermittent asthma, uncomplicated (4) Anxiety: Comment: Has establish care with psychiatry. Taking aripiprazole 7.5 mg p.o. daily and hydroxyzine 25 mg t.i.d. p.r.n.. Code(s): F41.9 - Anxiety disorder, unspecified (5) Tinea versicolor: Comment: Fungal infection on abdomen. 3-4 red oval-shaped patches. Will give ketoconazole cream to be applied as prescribed. Patient has been educated to try to keep the area dry. Code(s): B36.0 - Pityriasis versicolor Plan: draw labs Plan Follow-up physical exam 1 year Orders: Orders TSH reflex Free T4 Today Z13.29 - Encounter for screening for other suspected endocrine disorder Lipid Panel Today Z13.220 - Encounter for screening for lipoid disorders Complete Blood Count Auto Diff Today Z13.0 - Encounter for screening for diseases of the blood and blood-forming organs and certain disorders involving the immune mechanism Comprehensive Met. 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 Z12.4 - Encounter for screening for malignant neoplasm of cervix Medications: New ketoconazole 2% 1 appl topical BID 30 grams 0RF Refilled albuterol sulfate 90 mcg/actuation 2 puffs inhalation Q4-6H PRN 6.7 grams 0RF shortness of breath or wheezing Coding Level of Care Code Est Pt Prev Care 18-39y([id number]) Diagnoses Encounter for physical examination Z00.00 Vasovagal syncope R55 Mild intermittent asthma without complication J45.20 Asthma complication type: uncomplicated Anxiety F41.9 Tinea versicolor B36.0 Additional Codes PATRICK-7 Assessment Billing - PATRICK-7 Assessment Tool: PATRICK-7 Assessment 18748 ([id number]) Vital Signs *Quality* - Time spent: 1-15 minutes, on File ([id number]) Time Spent (min) 28
[2023-10-08 09:30] VITALS: BP 108/68; PULSE 67; O2SAT 99; BMI 20.3
== END 2023-10-08 10:00 | disposition home or self-care (01) ==
PROVIDERS: PCP Internal Medicine; Visit Provider Nurse Practitioner Primary Care
DX: Z00.00 Encounter for general adult medical examination without abnormal findings (principal); R55 Syncope and collapse; J45.20 Mild intermittent asthma, uncomplicated; F41.9 Anxiety disorder, unspecified; B36.0 Pityriasis versicolor
CPT/HCPCS: 1123F; 96127; 99395

== ENCOUNTER 2023-10-08 10:01 | Outpatient (REF) | payer OTHER, SELFPAY ==
[2023-10-08 13:26] LABS: MANUAL DIFF FLAG NO
[2023-10-08 13:34] LABS: Appearance Urine Turbid; Color Urine Yellow; Glucose Urine UA Negative (Negative); Leukocyte Esterase Urine Small (1+) (Negative); Nitrite Urine Negative (Negative); PH 5.5 (5.0-9.0); Specific Gravity - Urine 1.025 (1.005-1.025); UMIC TRIGGER UACC YES; Urine Blood Negative (Negative); Urine Ketones Trace mg/dL (Negative); Urine Protein Trace mg/dL (Neg-Trace)
[2023-10-08 13:47] LABS: Bacteria Urine 1+ (None Seen); Basophils Percent Auto 0.4 % (0-2); Eosinophils Absolute Auto 0.3 X10*3/uL (0.0-0.4); Eosinophils Percent Auto 4.7 % (0-4); Hemoglobin 14.1 g/dl (12.0-16.0); Hyaline Casts Urine 0-2 /LPF (0-2); Imm Gran Abs Auto 0.01 X10*3/uL (0.00-0.03); Imm Gran Pct Auto 0.1 % (0.0-0.4); Lymphocytes Absolute Auto 2.7 X10*3/uL (1.2-4.9); Lymphocytes Percent Auto 40.2 % (20-40); Mean Corpuscular HGB Conc 33.6 g/dl (31.0-35.0); Mean Corpuscular Hemoglobin 26.7 pg (27.0-33.0); Mean Corpuscular Volume 79.4 fL (80.0-98.0); Mean Platelet Volume 10.9 fL (9.4-12.3); Monocytes Absolute Auto 0.3 X10*3/uL (0.1-1.2); Monocytes Percent Auto 4.7 % (2-11); Neutrophils Absolute Auto 3.4 x10*3/uL (2.0-8.3); Neutrophils Percent Auto 49.9 % (45-73); Platelet Count 228 X10*3/uL (160-400); RBC Urine 0-2 /HPF (0-2); Red Blood Count 5.29 X10*6/uL (4.20-5.50); Red Cell Distribution Width 13.7 % (11.0-16.0); UACC Culture Trigger YES; WBC Urine 0-5 /HPF (0-5); White Blood Count 6.8 X10*3/uL (4.8-10.8)
[2023-10-08 14:28] LABS: Alanine Aminotransferase 15 U/L (0-31); Albumin Level 4.3 g/dL (3.5-5.0); Alkaline Phosphatase 65 U/L (39-117); Anion Gap 14 (12-20); Aspartate Amino Transferase 18 U/L (5-31); Bilirubin Total 0.6 mg/dL (0.0-1.0); Blood Urea Nitrogen 16 mg/dL (9-16); Carbon Dioxide 21 mmol/L (22-29); Chloride 107 mmol/L (96-108); Cholesterol 162 mg/dL (<200); Estimated Glomerular Filt Rate > 60; Glucose Random 84 mg/dL (60-115); HDL Cholesterol 62 mg/dL (>40); LDL Cholesterol Calculated 91 mg/dL (<100); Potassium 4.1 mmol/L (3.3-5.1); Sodium 138 mmol/L (135-145); Total Protein 7.2 g/dL (6.5-8.0); Triglycerides 45 mg/dL (<150)
[2023-10-08 14:43] LABS: Vitamin B12 619 pg/mL (200-900)
[2023-10-08 14:44] LABS: TSH reflex Free T4 0.26 uIU/mL (0.32-4.0)
[2023-10-08 16:17] LABS: Free T4 (Free Thyroxine) 1.02 ng/dL (0.71-1.85)
[2023-10-13 13:49] LABS: Vitamin D 25-OH, D2 <4 ng/mL; Vitamin D 25-OH, D3 16 ng/mL; Vitamin D 25-OH, Total 16 ng/mL (30-100)
[2023-10-15 06:24] LABS: Vitamin B6 11.3 ng/mL (2.1-21.7)
== END 2023-10-08 10:02 | disposition home or self-care (01) ==
LOC: HO.HMGCLDS 10:01
PROVIDERS: PCP Internal Medicine; Visit Provider Nurse Practitioner Primary Care
DX: Z13.220 Encounter for screening for lipoid disorders (principal); Z13.0 Encounter for screening for diseases of the blood and blood-forming organs and certain disorders involving the immune mechanism; Z91.89 Other specified personal risk factors, not elsewhere classified; Z13.21 Encounter for screening for nutritional disorder; Z13.29 Encounter for screening for other suspected endocrine disorder
CPT/HCPCS: 36415; 80053; 80061; 81001; 82306; 82607; 84207; 84439; 84443; 85025; 87086

== ENCOUNTER 2023-12-20 10:30 | Outpatient (REF) | payer OTHER, SELFPAY ==
[2023-12-21 06:03] LABS: CT PCR NOT DETECTED (Not Detect.); NG PCR NOT DETECTED (Not Detect.)
[2023-12-21 09:23] LABS: Bacterial Vaginosis PCR NEGATIVE (Negative); Candida Group PCR NOT DETECTED (Not Detect); Candida glab krusei PCR NOT DETECTED (Not Detect); Trichomonas vaginalis PCR NOT DETECTED (Not Detect)
== END 2023-12-20 10:31 | disposition home or self-care (01) ==
LOC: HO.LAB 10:30
PROVIDERS: PCP Internal Medicine; Visit Provider Advanced Practice Midwife
DX: Z01.419 Encounter for gynecological examination (general) (routine) without abnormal findings (principal); N89.8 Other specified noninflammatory disorders of vagina
CPT/HCPCS: 0352U; 36415; 87491; 87591; 87625; 88175; 99385

== ENCOUNTER 2023-12-20 10:30 | Outpatient (AMB) | payer OTHER, SELFPAY ==
[2023-12-20 10:39] VITALS: BP 100/60; BMI 19.6
--- NOTE | 2023-12-20 10:39 | MHC.OFFVIS ---
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: No Information Interpreted: clinical only Application Support Intern: Application Support Intern Present Allergies Seasonal Allergies Allergy (Mild, Verified 12/20/23 10:39) runny nose, sneezing Medication List - Last Reconciled 12/20/23 by Fabi Bentley CNM albuterol sulfate 90 mcg/actuation 2 puffs inhalation Q4-6H PRN aripiprazole 7.5 mg PO DAILY comp.stocking,thigh,long,small As directed hydroxyzine pamoate 25 mg PO TID ibuprofen 600 mg PO Q8H PRN ketoconazole 2% 1 appl topical BID Symbicort 160-4.5 mcg/actuation (budesonide-formoterol) 1 inh inhalation BID NS Is last menstrual period known: Yes Last menstrual period: 12/14/23 Do you need a note to return to daycare/school/sports/work: No HPI HPI 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 [facility] Medical History Family history of thyroid disorder Intermittent palpitations Mild intermittent asthma COVID-19 Asthma Chromosomal abnormality Leg length discrepancy Scoliosis Dysmenorrhea Vasovagal syncope Surgical History No pertinent past surgical history Family History Mother No problems noted. Father No problems noted. Brother ADHD Sister Chronic mental disorder ADHD Mental health disorder Maternal Grandmother Cancer Mental health disorder Paternal Grandfather Substance use disorder Paternal Grandmother Substance use disorder Maternal Uncle Mental health disorder Social History Household Members: Family Housing: House Alcohol intake: never Patient Tobacco Use Status: Never used Tobacco e-Cigarette/Vaping Use: Never Used Substance Use Type: Marijuana service: No Current occupational status: employed Cognitive needs: No Hearing needs: No Vision needs: Yes Female Reproductive History Menstrual Age of Menarche: 14 Duration of menses: 3-5 days Date of last menstrual period: 12/14/23 control method: none Total pregnancies: 0 Full term: 0 History of abnormal pap smear: No (no previous pap) Physical Exam Vital Signs: Last Vital Signs BP 100/60 12/20/23 10:39 BMI result Body Mass Index 19.6 Const General: healthy appearing, comfortable, no acute distress, well developed and alert Nutritional Appearance: average body habitus Orientation/consciousness: patient oriented x3 Limitations: no limitations HEENT Head: Yes normocephalic Neck Neck: Yes normal visual inspection Chest Chest palpation & inspection: normal inspection of the chest Breast/axilla inspection: normal inspection of the breasts and normal inspection of the axillae Breast/axilla palpation: normal palpation of the breasts and normal palpation of the axillae Resp Effort & Inspection: normal respiratory effort GI Inspection: Yes normal to inspection, No Abdominal wall edema and No distended Palpation (GI): Soft to palpation and nontender General: Yes bladder normal to palpation External Female Exam: normal external appearance and normal appearance of the urethra Speculum Exam - Vagina: normal appearance of the vagina, normal palpation and normal vaginal discharge Speculum Exam - Cervix: normal appearance of the cervix, normal palpation and nontender Bimanual exam- vagina & uterus: normal bimanual exam, normal palpation, uterine size normal, bladder normal to palpation, consistency normal, normal palpation, uterine mobility normal, uterine shape normal, No Cervical tenderness present, non-tender and no cervical motion tenderness Bimanual Exam- Adnexa, other: normal adnexae, no masses, normal and No adnexal tenderness Neuro General: patient oriented x3 Assessment & Plan Assessment & Plan (1) Encounter for screening examination for sexually transmitted disease: Code(s): Z11.3 - Encounter for screening for infections with a predominantly sexual mode of transmission Category: Medical (2) Cervical cancer screening: Code(s): Z12.4 - Encounter for screening for malignant neoplasm of cervix Category: Medical (3) Well woman exam with routine gynecological exam: Code(s): Z01.419 - Encounter for gynecological examination (general) (routine) without abnormal findings Category: Medical Plan -----Discussed in this visit the following: healthy balanced diet, regular and consistent exercise, getting recommended health screens, doing the best she can for her particular health concerns, kegel exercises, pap smear screening and followup recommendations, mammography screening and SBE, normal changes in cycles in her life stage--- . Teaching done about regular cycles and that it is common for women who are either underweight or overweight to have some irregularity in their cycles because of the changed hormone feedback systems. Discussed that periods come in the cyclical fashion and not necessarily related to the month of the year but follow from 1 cycle to the next and are more regularly counted if you counts from the 1st day of 1 to 1st day of the next to learn the length of the cycle . She is not sure if she got the Gardasil vaccine but she is going to check with her mom. If she did not recommend considering getting vaccinated. she is open t blood wo for STIs and I placed the orders rk o. I also gave her information about the patient portal so she can get her results and informed her about how results will be shared. Orders: Orders Hepatitis B Surface Antigen Today Z01.419 - Encounter for gynecological examination (general) (routine) without abnormal findings, Z11.3 - Encounter for screening for infections with a predominantly sexual mode of transmission, Z12.4 - Encounter for screening for malignant neoplasm of cervix HIV Ab/Ag Today Z01.419 - Encounter for gynecological examination (general) (routine) without abnormal findings, Z11.3 - Encounter for screening for infections with a predominantly sexual mode of transmission, Z12.4 - Encounter for screening for malignant neoplasm of cervix Hepatitis C Antibody Today Z01.419 - Encounter for gynecological examination (general) (routine) without abnormal findings, Z11.3 - Encounter for screening for infections with a predominantly sexual mode of transmission, Z12.4 - Encounter for screening for malignant neoplasm of cervix Syphilis Screen Today Z01.419 - Encounter for gynecological examination (general) (routine) without abnormal findings, Z11.3 - Encounter for screening for infections with a predominantly sexual mode of transmission, Z12.4 - Encounter for screening for malignant neoplasm of cervix Coding Level of Care Code New Pt Prev Care 18-39yr([id number] Diagnoses Encounter for screening examination for sexually transmitted disease Z11.3 Cervical cancer screening Z12.4 Well woman exam with routine gynecological exam Z01.419
== END 2023-12-20 11:33 | disposition home or self-care (01) ==
LOC: HO.HWSM 10:30
PROVIDERS: PCP Internal Medicine; Visit Provider Advanced Practice Midwife
DX: Z01.419 Encounter for gynecological examination (general) (routine) without abnormal findings (principal); Z11.3 Encounter for screening for infections with a predominantly sexual mode of transmission; Z12.4 Encounter for screening for malignant neoplasm of cervix
CPT/HCPCS: 99385

== ENCOUNTER 2024-04-18 08:17 | Emergency (ER) | payer OTHER, SELFPAY ==
--- NOTE | ~2024-04-18 | XR_ITS ---
EXAMINATION: XR CHEST CLINICAL INFORMATION: SOB/asthma. COMPARISON: 08/06/2020. TECHNIQUE: 2 views of the chest were obtained. FINDINGS: There is no gross pneumothorax. Lungs hyperinflated. Stable cardiomediastinal silhouette. Redemonstration of congenital scoliosis convex to the right. No significant pleural effusion. No new focal consolidation. XR/XR chest 2V IMPRESSION: Stable cardiomediastinal silhouette. Redemonstration of congenital scoliosis convex to the right. No significant pleural effusion. No new focal consolidation. This study was presented today to April 18, 2024 for interpretation. Stat results provided at this time as requested by referring provider. Electronically signed by: Eboni Levine MD 04/18/2024 10:31 AM CRISELDA GOEL
[2024-04-18 08:19] VITALS: BP 116/67; PULSE 93; RESP 20; TEMP 36.1; O2SAT 100; BMI 21.2
[2024-04-18 08:41] VITALS: BP 113/71; PULSE 79; RESP 18; TEMP 36.7; O2SAT 100
--- NOTE | 2024-04-18 08:41 | ED.SOB ---
HPI - SOB/Dyspnea General Chief Complaint: Dyspnea Stated Complaint: Asthma Time Seen by Provider: 04/18/24 08:35 Source: patient Mode of arrival: ambulatory History of Present Illness ED Provider: Imani SEGURA Narrative: 24-year-old female with history of asthma, comes in with increasing shortness of breath over the past couple of days without associated fever, chills, nausea, vomiting, patient does smoke cannabis. Related Data Home Medications ?Medication ?Instructions ?Recorded ?Confirmed ibuprofen 600 mg tablet 600 mg PO Q8H PRN 07/26/20 12/20/23 hydroxyzine pamoate 25 mg capsule 25 mg PO TID 01/07/22 12/20/23 aripiprazole 5 mg tablet 7.5 mg PO DAILY 10/08/23 12/20/23 Previous Rx's ?Medication ?Instructions ?Recorded Symbicort 160 mcg-4.5 1 inh inhalation BID #30.6 grams 08/12/23 mcg/actuation HFA aerosol inhaler (budesonide-formoterol) comp.stocking,thigh,long,small #12 ea 09/13/23 albuterol sulfate 90 mcg/actuation 2 puff inhalation Q4-6H PRN 10/08/23 aerosol inhaler shortness of breath or wheezing #6.7 grams ketoconazole 2 % topical cream 1 appl topical BID #30 grams 10/08/23 prednisone 50 mg tablet 50 mg PO DAILY 4 days #4 tabs 04/18/24 Allergies Allergy/AdvReac Type Severity Reaction Status Date / Time Seasonal Allergies Allergy Mild runny Verified 04/18/24 08:22 nose, sneezing Review of Systems Review of Systems: Pertinent positives and negatives as stated in HPI [facility] Past Medical History Source: nursing notes reviewed Medical History Family history of thyroid disorder Intermittent palpitations Mild intermittent asthma COVID-19 Asthma Chromosomal abnormality Leg length discrepancy Scoliosis Dysmenorrhea Vasovagal syncope Surgical History No pertinent past surgical history Family History Family History Mother No problems noted. Father No problems noted. Brother ADHD Sister Chronic mental disorder ADHD Mental health disorder Maternal Grandmother Cancer Mental health disorder Paternal Grandfather Substance use disorder Paternal Grandmother Substance use disorder Maternal Uncle Mental health disorder Social History Social History Household Members: Family Housing: House Alcohol intake: never Patient Tobacco Use Status: Never used Tobacco e-Cigarette/Vaping Use: Never Used Substance Use Type: Marijuana Advance Directives: No Advance Directives Information Provided: Yes service: No Current occupational status: employed Cognitive needs: No Hearing needs: No Vision needs: Yes Physical Exam Vital Signs: Vital Signs: Last Vital Signs Temp 98.3 F 04/18/24 10:41 Pulse 103 H 04/18/24 10:41 Resp 30 H 04/18/24 10:41 BP 98/61 04/18/24 10:41 Pulse Ox 100 04/18/24 10:41 O2 Del Method Room Air 04/18/24 10:41 BMI result Body Mass Index 21.2 VITAL SIGNS: Reviewed. GENERAL: Well developed, well nourished, in no acute distress. HEAD: Normocephalic/atraumatic EYES: PERRLA, EOMI EARS: Ext canals without abnormality NOSE: Nares patent bilateral OROPHARYNX: no oral lesions noted, posterior pharynx clear NECK: Supple, no adenopathy LUNGS: Good inspiratory effort, no tachypnea or increased work of breathing. SpO2<100> CARDIOVASCULAR: Regular rate and rhythm without noted murmurs ABDOMEN: Soft, non-tender, non-distended with bowel sounds. MUSCULOSKELETAL: No tenderness, deformities, or effusions noted on gross inspection. EXTREMITIES: No cyanosis, clubbing or edema. SKIN: Inspection of the skin reveals no rashes NEUROLOGIC: Alert and oriented x 4. Strength and sensation to light touch were grossly intact x 4. Medications Administered Discontinued Medications Generic Name Dose Route Start Last Admin Trade Name Freq PRN Reason Stop Dose Admin Albuterol Sulfate 2.5 mg/ 0 mg 04/18/24 08:49 04/18/24 08:53 Albuterol/Ipratropium 3 ml INHALE 04/18/24 08:50 1 dose ONCE ONE Administration Prednisone 50 mg 04/18/24 09:13 04/18/24 09:26 Prednisone 10 Mg Tablet PO 04/18/24 09:14 50 mg ONCE ONE Administration Medical Decision Making Medical Decision Making MDM Narrative: 24-year-old female with history and clinical presentation, DD DX: Mild asthma exacerbation, viral illness INTERVENTION: Nebulized treatments, steroids. Viral testing is negative for COVID-19/influenza/RSV, my interpretation of the chest x-ray is there is no evidence of infiltrate or venous congestion. Differential Diagnosis Differential Diagnoses: The differential diagnosis associated with the presentation includes See above Admission/Observation Consideration of admission/observation: Escalation of care including admission/observation considered Does not meet inpatient level of care Lab Data MDM Lab Attestation statement: I reviewed the patient's lab results. See above Labs: Lab Results 04/18/24 Range/Units 08:31 Hold Purple Top SEE NOTE Influenza Type A (PCR) NEGATIVE (Negative) Influenza Type B (PCR) NEGATIVE (Negative) RSV RNA Qual (PCR) NEGATIVE (Negative) SARS-CoV-2 RNA (RT-PCR) NEGATIVE (Negative) Independent Interpretation I performed an independent interpretation of an: Plain X-Ray Interpretation: See above Radiology Impression Discussion of test interpretation with radiology: I have reviewed the radiologist's reading. Radiologist Impression: See above External Record Review External record reviewed: Prior outpatient radiology and Primary care record Discharge Plan Discharge Clinical Impression: Asthma exacerbation Patient Disposition: Home, Self-Care Instructions: Asthma (ED) Additional Instructions: Please complete the short course of steroids, follow-up with your primary care doctor within a week and do not hesitate to return to the emergency room for any worsening of symptoms. Prescriptions: New prednisone 50 mg tablet 50 mg PO DAILY 4 Days Qty: 4 0RF No Action budesonide-formoterol [Symbicort] 160-4.5 mcg/actuation HFA aerosol inhaler 1 inh inhalation BID Qty: 30.6 1RF Rx Instructions: rinse mouth after each use hydroxyzine pamoate 25 mg capsule 25 mg PO TID albuterol sulfate 90 mcg/actuation HFA aerosol inhaler 2 puff inhalation Q4-6H PRN (Reason: shortness of breath or wheezing) Qty: 6.7 0RF ketoconazole 2 % cream 1 appl topical BID Qty: 30 0RF ibuprofen 600 mg tablet 600 mg PO Q8H PRN aripiprazole 5 mg tablet 7.5 mg PO DAILY (DME) comp.stocking,thigh,long,small Misc See Rx Instructions .Route Qty: 12 0RF Rx Instructions: As directed Referrals: Neva Rucker MD [Primary Care Provider] - Print Language: Guatemalan
--- NOTE | 2024-04-18 08:42 | MHC.EDTECH ---
Vitals was completed, and Pt rest comfortable in her bed with cardiac tech attached.
[2024-04-18 08:49] VITALS: PULSE 86; RESP 22; O2SAT 99
[2024-04-18] MEDS: Albuterol Sulfate 2.5 MG, Albuterol/Iprat 2.5/0.5MG 3 ML 3 ML INHALE (08:53)
[2024-04-18] MEDS: predniSONE 10 MG TABLET 50 MG PO (09:26)
[2024-04-18 09:38] LABS: Influenza A PCR NEGATIVE (Negative); Influenza B PCR NEGATIVE (Negative); Resp Syncy Virus RNA Qual PCR NEGATIVE (Negative); SARS COV2 PCR INHOUSE NEGATIVE (Negative)
[2024-04-18 10:41] VITALS: BP 98/61; PULSE 103; RESP 30; TEMP 36.8; O2SAT 100
[2024-04-18 11:01] VITALS: BP 98/61; PULSE 103; RESP 30; TEMP 36.8; O2SAT 100
== END 2024-04-18 11:04 | disposition home or self-care (01) ==
PROVIDERS: Emergency Provider Student in an Organized Health Care Education/Training Program; PCP Internal Medicine
DX: J45.901 Unspecified asthma with (acute) exacerbation (principal); R06.02 Shortness of breath; Z03.818 Encounter for observation for suspected exposure to other biological agents ruled out
CPT/HCPCS: 0241U; 36415; 71046; 94640; 94664; 99284

== ENCOUNTER 2024-09-11 08:37 | Outpatient (AMB) | payer OTHER, SELFPAY ==
--- NOTE | 2024-09-11 08:42 | A.OFFVIS_ITS ---
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 They had lightheaded episode/near syncopal episode a month ago, happen repeatedly. Did not drinking enough water in a day, drinking up to 24 oz. Also not much salt intake. However he has not had a recurrent syncopal episode event. Complains of nausea intermittently. [facility] Medical History Family history of thyroid disorder Intermittent palpitations Mild intermittent asthma COVID-19 Asthma Chromosomal abnormality Leg length discrepancy Scoliosis Dysmenorrhea Vasovagal syncope Surgical History No pertinent past surgical history Family History Mother No problems noted. Father No problems noted. Brother ADHD Sister Chronic mental disorder ADHD Mental health disorder Maternal Grandmother Cancer Mental health disorder Paternal Grandfather Substance use disorder Paternal Grandmother Substance use disorder Maternal Uncle Mental health disorder Social History Household Members: Family Housing: House Alcohol intake: never Patient Tobacco Use Status: Never used Tobacco e-Cigarette/Vaping Use: Never Used Substance Use Type: Marijuana service: No Current occupational status: employed Cognitive needs: No Hearing needs: No Vision needs: Yes Female Reproductive History Menstrual Age of Menarche: 14 Review of Systems Const Denies chills, Denies fatigue, Denies fever(s), Denies frequent falls, Denies weakness, Denies weight gain and Denies weight loss ENT Denies dizziness Card Denies chest pain, Denies leg edema, Denies lightheadedness, Denies palpitations, Denies dyspnea, Denies dyspnea on exertion, Denies orthopnea and Denies other (loss of consciousness) Resp Denies cough, Denies dyspnea and Denies dyspnea on exertion GI Denies hematochezia and Denies change in stool character Musc Denies abnormal gait, Denies muscle weakness, Denies numbness, Denies radiating pain into limb and Denies tingling Neuro Denies abnormal gait, Denies dizziness, Denies frequent falls, Denies numbness, Denies tingling and Denies weakness Endo Denies fatigue and Denies palpitations Physical Exam Vital Signs: Last Vital Signs Pulse 71 09/11/24 08:50 BP 95/63 09/11/24 08:50 BMI result Body Mass Index 20.9 Const General: cooperative, healthy appearing, comfortable and no acute distress Orientation/consciousness: patient oriented x3 Neck Neck: Yes normal visual inspection and Yes no JVD Carotids: normal carotid upstroke Resp Effort & Inspection: normal respiratory effort Auscultation: clear to auscultation bilaterally, no crackles, no rales, no rhonchi and no wheezes Cardio Jugular venous distension: no JVD Rate: regular rate Rhythm: regular rhythm Heart sounds: S1 normal heart sound present, S2 normal heart sound present, no murmurs and no rubs Neuro General: patient oriented x3 Extrem General: Yes normal to inspection, No no pedal edema and No calf tenderness Psych Appearance: grossly normal Mental Status: mental status grossly normal Speech and movement: Normal speech and movement present Office Procedures EKG Details: EKG shows normal sinus rhythm normal EKG 30016-[id number], Complete Assessment & Plan Assessment & Plan (1) Vasovagal syncope: Comment: Patient has establish care with Cardiology. Has been ordered compressions stockings by them has not yet utilize them will pick them up today. Patient has also been educated to increase her fluid intake. Code(s): R55 - Syncope and collapse Category: Medical Plan: Vasovagal syncope in this young patient. Discussed again mechanism of vasovagal syncope. Simple treatment of increase fluid intake. Recommend to slowly push increase water intake up to 80 oz and increase salt intake up to 4-6 g. This should lead to improvement in the symptoms and avoid syncopal episodes. Orthostatic precautions were discussed. Benign nature of vasovagal syncope were discussed. Will follow up in the clinic in 2 years, sooner PRN Coding Level of Care Code Est Pt Level 3 (58263) Complex EM visit Add On G2211 Diagnoses Vasovagal syncope R55 CPT Codes EKG - CPT: 15777-[id number], Complete ([id number])
[2024-09-11 08:43] VITALS: BP 102/64; PULSE 64; BMI 20.9
[2024-09-11 08:50] VITALS: BP 101/64; BP 95/63; PULSE 63; PULSE 71
== END 2024-09-11 09:21 | disposition home or self-care (01) ==
PROVIDERS: PCP Internal Medicine; Visit Provider Internal Medicine Cardiovascular Disease
DX: R55 Syncope and collapse (principal)
CPT/HCPCS: 93010; 99213; G2211

== ENCOUNTER → 2024-09-11 08:37 | Outpatient (BNVA) | payer OTHER, SELFPAY | PROVIDERS: PCP Internal Medicine; Visit Provider Internal Medicine Cardiovascular Disease | DX: R55 Syncope and collapse (principal) | CPT/HCPCS: 93005; 99212 ==

== ENCOUNTER 2024-11-01 08:41 | Outpatient (REF) | payer OTHER, SELFPAY ==
[2024-11-01 10:36] LABS: Cholesterol 126 mg/dL (<200); HDL Cholesterol 53 mg/dL (>40); Triglycerides 48 mg/dL (<150)
== END 2024-11-01 08:42 | disposition home or self-care (01) ==
LOC: HO.LAB 08:41
PROVIDERS: PCP Internal Medicine; Visit Provider Internal Medicine
DX: Z13.1 Encounter for screening for diabetes mellitus (principal); Z13.220 Encounter for screening for lipoid disorders; Z86.39 Personal history of other endocrine, nutritional and metabolic disease
CPT/HCPCS: 36415; 80061; 82306; 82947

== ENCOUNTER 2024-12-13 12:53 | Outpatient (AMB) | payer OTHER, SELFPAY ==
[2024-12-13 13:07] VITALS: BP 90/60; PULSE 77; RESP 15; TEMP 36.9; O2SAT 100; BMI 19.7
--- NOTE | 2024-12-13 13:07 | A.OFFPC_ITS ---
Vital Signs 12/13/24 13:07 Height 4 ft 11 in Weight 97 lb 8 oz BMI 19.7 BP 90/60 Blood Pressure Location Rt brachial Position Sitting Respiration 15 Pulse 77 Pulse Source Pulse Oximeter Temp 98.5 F Temp Source Oral Pulse Oximetry (%) 100 Oxygen Delivery Method Room Air Intake Visit Reasons: f/u skin rash Intake Note: Pt is here today rash rash flare ups: arms and groin area x1week ago Allergies Seasonal Allergies Allergy (Mild, Verified 12/15/24 16:35) runny nose, sneezing Medication List - Last Reconciled 12/15/24 by Neva Rucker MD albuterol sulfate 90 mcg/actuation 2 puffs inhalation Q4-6H PRN albuterol sulfate 1.25 mg (3 mL) inhalation QID PRN budesonide-formoterol 80-4.5 mcg/actuation (Symbicort) 1 inh inhalation BID cholecalciferol (vitamin D3) 1,250 mcg PO QWEEK 3 months clotrimazole-betamethasone 1-0.05 % 1 appl topical BID 10 days hydroxyzine HCl 10 mg PO TID PRN ibuprofen 600 mg PO Q8H PRN ketoconazole 2% 1 appl topical BID montelukast 10 mg PO DAILY nebulizers (AeroEclipse II Nebulizer) As directed every 6 hours as needed for episodes of wheezing and bronchospasm prednisone 40 mg (2 x 20 mg) PO DAILY 5 days Tobacco use date assessed: 12/13/24 Dental Screening Dental Screen Date: 12/13/24 Did you have a dental visit in the last 12 months?: No Did you have a dental problem in the last 6 months where you did not have access to dental care?: No Was dental information given to patient?: Patient declined HPI f/u skin rash HPI Details - The patient is a 24-year-old female pr esenting today complaining of recurrent pruritic rash appearing on her arm and leg. - The rash has been present for over a y ear, affecting the legs and arms, with itching and warmth to touch. - Cold water and unscented lotion provid e temporary relief, but the rash persists for days. - Hydroxyzine is used for anxiety but do es not help with the rash. - Vitamin D deficiency was noted on last labs done, and high-dose vitamin D supplementation was prescribed. -she also complains of another rash on h er left groin area which is not as itchy . Was using clotrimazole-betamethasone cream in the past which has helped but ran out of her prescription, wants a refill [facility] Medical History (Updated 12/15/24 @ 17:24 by Neva Rucker MD) Vitamin D deficiency Urticaria Tinea cruris Family history of thyroid disorder Intermittent palpitations Mild intermittent asthma COVID-19 Asthma Chromosomal abnormality Leg length discrepancy Scoliosis Dysmenorrhea Vasovagal syncope Surgical History No pertinent past surgical history Family History Mother No problems noted. Father No problems noted. Brother ADHD Sister Chronic mental disorder ADHD Mental health disorder Maternal Grandmother Cancer Mental health disorder Paternal Grandfather Substance use disorder Paternal Grandmother Substance use disorder Maternal Uncle Mental health disorder Social History Household Members: Family Housing: House Alcohol intake: never Patient Tobacco Use Status: Never used Tobacco e-Cigarette/Vaping Use: Never Used Substance Use Type: Marijuana service: No Current occupational status: employed Cognitive needs: No Hearing needs: No Vision needs: Yes Female Reproductive History Menstrual Age of Menarche: 14 Questionnaire PHQ-9 Over the last 2 weeks, how often have you been bothered by any of the following problems? 1. Little interest or pleasure in doing things: not at all 2. Feeling down, depressed, or hopeless: not at all 3. Trouble falling or staying asleep, or sleeping too much: more than half the days 4. Feeling tired or having little energy: several days 5. Poor appetite or overeating: more than half the days 6. Feeling bad about yourself - or that you are a failure or have let yourself or your family down: not at all 7. Trouble concentrating on things, such as reading the newspaper or watching television: not at all 8. Moving or speaking so slowly that other people could have noticed. Or the opposite - being so fidgety or restless that you have been moving around a lot more than usual: not at all 9. Thoughts that you would be better off or of hurting yourself in some way: not at all Total score: 5 Depression Screening Interpretation: Negative Depression Screening Done: Yes 51599 - PHQ-9 Billing: Yes Source: Developed by Drs. Lenny Hurst, Camille Blunt, Juan Ly and colleagues, with an educational alisa from [employer]. Thrive Questionnaire Date Thrive assessed: 12/13/24 I am a: Patient What is your living situation today?: I have a steady place to live Within the past 12 months, did the food you bought not last and you didn't have the money to get more?: Sometimes True Within the past 12 months, did you worry whether your food would run out before you got money to buy more?: Never true Do you have trouble paying for medicines?: No Do you have trouble getting transportation to medical appointments?: No Do you have trouble paying your heating and electricity bill?: No Do you have trouble taking care of your child, family member or friend?: No Do you have trouble with day-to-day activities such as bathing, preparing meals, shopping, managing finances, etc.?: No Are you currently unemployed and looking for a job?: No Are you interested in more education?: No Please select the resources that you would like help with: Housing/Senior Living, Food and Transportation Currently or been in a relationship where the following occur: No concerns reported THRIVE Score: 1 AUDIT C Alcohol Use Questionnaire (AUDIT-C) 1. How often do you have a drink containing alcohol?: Monthly or less 2. How many drinks containing alcohol do you have on a typical day when you are drinking?: 1 or 2 3. How often do you have six or more drinks on one occasion?: Less than monthly Total Score: 2 Score Reviewed/Action Taken: Yes PATRICK-7 AMB Questionnaire PATRICK-7 Date PATRICK - 7 assessed: 12/13/24 Feeling nervous, anxious, or on edge: 3 = Nearly every day Not being able to stop or control worryin = Nearly every day Worrying too much about different things: 3 = Nearly every day Trouble relaxin = Nearly every day Being so restless that it is hard to sit still: 2 = More than half the days Becoming easily annoyed or irritable: 3 = Nearly every day Feeling afraid as if something awful might happen: 1 = Several days Total PATRICK-7 score (0-4 normal; 5-9 mild; 10-14 moderate; 15-21 severe): 18 Source: Developed by Drs. Lenny Hurst, Camille Blunt, Juan Ly and colleagues, with an educational alisa from [employer]. PATRICK-7 Assessment Billing PATRICK-7 Assessment Tool: PATRICK-7 Assessment 35311 (Followed by psychiatry) Review of Systems Const All systems reviewed & are unremarkable except as noted in HPI and below GI Reports no additional complaints Musc Details: Recurrent back pain due to scoliosis Skin/Breast Reports as per HPI Psych Reports no additional complaints Physical exam (Primary Care) Vital Signs: Last Vital Signs Temp 98.5 F 12/13/24 13:07 Pulse 77 12/13/24 13:07 Resp 15 12/13/24 13:07 BP 90/60 12/13/24 13:07 Pulse Ox 100 12/13/24 13:07 Oxygen Delivery Method Room Air 12/13/24 13:07 BMI result Body Mass Index 19.7 Tobacco/Smoking Status: Tobacco use Status Tobacco use date assessed 12/13/24 12/13/24 13:11 Patient Tobacco Use Status Never used Tobacco 12/13/24 13:11 e-Cigarette/Vaping Use Never Used 12/13/24 13:11 PHQ-9: PHQ-9 Score PHQ-9: Total score 12 12/13/24 13:50 Depression Screening Interpretation: Negative Thrive Assessment: Date of Thrive Assessment Date Thrive assessed 12/13/24 12/13/24 13:15 Currently or been in a relationship where the following occur: No concerns reported Const General: no acute distress and alert Orientation/consciousness: patient oriented x3 HENMT Ears: external ears normal General nose exam: Normal external nose present Mouth: Normal oral and palatal mucosa present, oropharynx normal and moist mucous membranes Eyes General: appearance normal, both eyes and all related structures Neck Neck: Yes full ROM, Yes no lymphadenopathy and Yes supple Resp Effort & Inspection: normal respiratory effort and able to speak in complete sentences Auscultation: clear to auscultation bilaterally Cardio Rate: regular rate Rhythm: regular rhythm Heart sounds: S1 normal heart sound present and S2 normal heart sound present GI Palpation (GI): Soft to palpation, nontender and no masses Auscultation: normal bowel sounds Skin Other: No rash present on arms and legs, but saw pictures of erythematous patches on arms and legs on patient's phone Slightly raised scaly patch noted on left inguinal area General skin exam: no rashes or lesions noted Neuro General: patient oriented x3, gait normal, tone normal, moves all extremities, Normal light touch and pain sensation and no focal motor deficits Cranial nerves: Yes CN's II-XII intact bilaterally Cognition (Neuro): normal cognition Extrem General: Yes full ROM, Yes no joint enlargement, Yes no clubbing, cyanosis or edema and Yes no calf tenderness Psych Appearance: grossly normal and well kempt Mental Status: mental status grossly normal Speech and movement: Normal speech and movement present Affect: normal affect Coding Level of Care Code Est Pt Level 4 (29739) Diagnoses Tinea cruris B35.6 Urticaria L50.9 Vitamin D deficiency E55.9 Additional Codes PATRICK-7 Assessment Billing - PATRICK-7 Assessment Tool: PATRICK-7 Assessment 75920 ([id number]) PHQ-9 - 53975 - PHQ-9 Billing: Yes ([id number]) Assessment & Plan Assessment & Plan (1) Tinea cruris: Code(s): B35.6 - Tinea cruris Category: Medical Plan: Prescription refill sent for clotrimazole-betamethasone cream to apply sparingly to affected area in left groin for no more than 10 days at a time. Keep area clean and dry at all times (2) Urticaria: Code(s): L50.9 - Urticaria, unspecified Category: Medical Plan: Currently asymptomatic no rash at present, likely urticaria. Patient is already on hydroxyzine which she states has not helped. Started on montelukast 10 mg taken once a day in a.m.. Referral to Dermatology ordered for further evaluation and management (3) Vitamin D deficiency: Code(s): E55.9 - Vitamin D deficiency, unspecified Category: Medical Plan: Prescription sent for vitamin-D 350 1000 units per capsule to take once a week for the next 3 months. Once finished taking prescription, to continue taking [id number] vitamin-D 3 at 2000 units daily Orders: Referrals Dermatology Referral L50.9 - Urticaria, unspecified Medications: New clotrimazole-betamethasone 1-0.05 % 1 appl topical BID 45 grams 0RF 10 days B35.6 - Tinea cruris montelukast 10 mg PO DAILY 90 tabs 1RF cholecalciferol (vitamin D3) 1,250 mcg PO QWEEK 13 caps 0RF 3 months E55.9 - Vitamin D deficiency, unspecified
--- OUTSIDE RECORDS SUMMARY | 2024-12-13 13:45 | XMS_ITS | Clinical Summary ---
Author Organization [facility] Address [address] [place] [id number] Phone Care Team Providers Care Block Engraver Name Role Phone Neva Rucker MD Primary Care Provider Allergies No known active allergies Medications ondansetron (ZOFRAN-ODT) 4 MG disintegrating tablet (To-Go) Take 1-2 tablet(s) by mouth every 8 hours as needed for nausea/vomiting 6 tablet 01/13/20 22 Active Additional Information Patient not taking.Reported on 07/31/2022 ibuprofen (MOTRIN) 600 mg tablet (To-Go) Take 1 tablet by mouth every 6 hours as needed for pain. 12 tablet 01/13/20 22 Active albuterol 90 mcg/actuation inhaler Inhale 2 puffs into the lungs every 6 (six) hours as needed for wheezing. 8 g 03/16/20 22 Active albuterol 90 mcg/actuation inhaler Inhale 2 puffs into the lungs every 6 (six) hours as needed for wheezing. 6.7 g 08/01/19 23 Active Social History Tobacco Use Types Packs/Day Years Used Date Smoking Tobacco: Never Smokeless Tobacco: Never Tobacco Cessation:Counseling Given: Not Answered Alcohol Use Standard Drinks/Week Comments Not Currently 0 (1 standard drink = 0.6 oz pur e alcohol) rare Education Answer Date Recorded Are you interested in more education? Not on megan e 08/21/2022 Are you concerned about learning? Not on file 08/21/2022 No 08/21/2022 No 08/21/2022 Digital Access Answer Date Recorded No 09/19/2022 No 09/19/2022 Reliable internet access at home? Not on file 09/19/2022 Device with a working camera? Not on file Intimate Partner Violence Answer Date R ecorded Are you denied basic needs s uch as food, clothing, or medical care? No 11/09/2023 In the past 12 months have y ou been in a relationship with a person who hurts, threatens, or tries to control you? No 11/09/2023 Are you denied basic needs s uch as food, clothing, or medical care? No 11/09/2023 In the past 12 months have y ou been in a relationship with a person who hurts, threatens, or tries to control you? No 11/09/2023 Comments Unknown Sex and Gender Information Value Date Recorded Sex Assigned at Female 12/27/2021 5:34 PM EDT Legal Sex Female 11:31 AM EST Gender Identity Non-binary 12/27/2021 5:34 PM EDT Sexual Orientation Choose not to disclose 2021 5:34 PM EDT Last Filed Vital Signs Vital Sign Reading Time Taken Comments Blood Pressure 105/65 11/10/2023 1:23 AM EDT Pulse 68 11/10/2023 1:23 AM EDT Temperature 36.5 C (97.7 F) 11/10/2023 1:23 AM EDT Respiratory Rate 16 11/10/2023 1:23 AM EDT Oxygen Saturation 98% 11/10/2023 1:23 AM EDT Inhaled Oxygen Concentration - - Weight 45.8 kg (101 lb) 07/31/2022 7:27 AM EDT Height 149.9 cm (4' 11 ) 07/31/2022 7:27 AM EDT Body Mass Index 20.4 07/31/2022 7:27 AM EDT Plan of Treatment Health Maintenance Due Date Last Done Comments DEPRESSION SCREENING 2014 SMOKING Hx and SMOKELESS TOBACCO SCREENING 2015 HPV VACCINES (1 - 3-dose series) 2017 CHLAMYDIA SCREENING 2018 MENINGOCOCCAL VACCINES (B) ( 1 of 2 - Standard) 2018 HEPATITIS C SCREENING 2020 HIV ONE-TIME SCREENING (18-6 5 YEARS) 2020 PAP SMEAR 2023 COVID-19 VACCINE (3 - 2023-2 5 season) 2023 11/25/2020, 10/28/2020 Adult Td,Tdap Booster 06/25/2030 06/25/2020 MENINGOCOCCAL VACCINES (ACWY) Completed 03/08/2019 HEPATITIS A VACCINES Aged Out No long er eligible based on patient's age to complete this topic HIB VACCINES Aged Out No longer eligi ble based on patient's age to complete this topic PNEUMOCOCCAL VACCINES (0-49 years) Aged Out No longer eligible b ased on patient's age to complete this topic Medical Devices Not on file Insurance [facility] A[facility] [place] [address] [place] [address] [place] [address] [place] [address] [employer]CO [facility] A[employer] Care Teams Block Engraver Relationship Specialty Start Date End Date Neva Rucker MD [address] [place] [id number] PCP - General Internal Medicine 11/09/23 Additional Source Comments The information contained in this document represents components of the legal health record. It is not the complete legal health record.[facility]
== END 2024-12-13 13:55 | disposition home or self-care (01) ==
LOC: HO.HMCC 12:54
PROVIDERS: PCP Internal Medicine; Visit Provider Internal Medicine
DX: B35.6 Tinea cruris (principal); L50.9 Urticaria, unspecified; E55.9 Vitamin D deficiency, unspecified

== ENCOUNTER → 2024-12-13 12:53 | Outpatient (BNVA) | payer OTHER, SELFPAY | PROVIDERS: PCP Internal Medicine; Visit Provider Internal Medicine | DX: B35.6 Tinea cruris (principal); L50.9 Urticaria, unspecified; E55.9 Vitamin D deficiency, unspecified | CPT/HCPCS: 96127; 99212 ==

== ENCOUNTER 2024-12-15 12:42 | Outpatient (AMB) | payer OTHER, SELFPAY ==
--- OUTSIDE RECORDS SUMMARY | 2024-12-15 12:44 | XMS_ITS | Clinical Summary ---
Author Organization [facility] Address [address] [place] [phone] Phone Care Team Providers Care Front Desk Coordinator Name Role Phone Neva Rucker MD Primary [...] topic Medical Devices Not on file Insurance [employer] [place] [address] [place] [address] [address] [place] [address] [employer] Care Teams Front Desk Coordinator Relationship Specialty Start Date End Date Neva Rucker MD [address] [place] [id number] PCP - General Internal Medicine 11/09/23 Additional Source Comments The information contained in this document represents components of the legal health record. It is not the complete legal health record.[facility]
--- NOTE | 2024-12-15 12:51 | MHC.OFFWIV ---
Intake Vital Signs 12/15/24 12:52 Height 4 ft 11 in Weight 97 lb BMI 19.6 BP 102/60 Blood Pressure Location Rt brachial Position Sitting Pulse 85 Pulse Source Pulse Oximeter Temp 98.2 F Pulse Oximetry (%) 99 Oxygen Delivery Method Room Air Intake Visit Reasons: ASHTMA ATTACK Intake Note: presents with asthma flaring c/o tight chest, dyspnea, SOB for a few days Patient Tobacco Use Status: Never used Tobacco Allergies Seasonal Allergies Allergy (Mild, Verified 12/15/24 12:55) runny nose, sneezing Do you need a note to return to daycare/school/sports/work: Yes HPI HPI Comments History of Present Illness Details History - The patient is a 24-year-old presenting with an asthma exacerbation. - The patient reports chest tightness without wheezing for three to four days, unrelieved by albuterol inhaler. - Typically, receives nebulizer treatments and prednisone during exacerbations but lacks a home nebulizer. - The patient has not refilled Symbicort maintenance inhaler and uses Zyrtec for allergic rhinitis. - The patient has a history of anxiety managed with medication. - The patient does not have chest pain, congestion, cough, KAN, sore throat, runny nose, fever, or chills. Physical Exam General: Cooperative, healthy appearing, comfortable and no acute distress Orientation/consciousness: Patient oriented x3 Limitations: No limitations Head: Normal to inspection Ears: Hearing grossly normal bilaterally, external ears normal and TM's normal bilaterally Nose: Normal external nose present, normal nares present, and no nasal discharge present. Face and sinus: Sinuses nontender to palpation. Mouth: Normal oral and palatal mucosa present and moist mucous membranes noted. Throat: Tonsils normal. Uvula is midline. Posterior oropharynx with erythema and no exudates. Eyes: Appearance normal, both eyes and all related structures Neck: Normal visual inspection, full ROM. No lymphadenopathy noted. Respiratory: Clear to auscultation bilaterally. Normal respiratory effort, able to speak in complete sentences. No respiratory distress, not tachypneic, no tripod positioning and no use of accessory muscles. Cardiovascular: Regular rate and rhythm. Normal S1 and S2 Skin: No rashes or lesions noted Patient was informed and verbally consented to the use of an ambient scribe for clinic note documentation during this visit [facility] Medical History (Updated 12/13/24 @ 13:45 by Neva Rucker MD) Vitamin D deficiency Urticaria Tinea cruris Family history of thyroid disorder Intermittent palpitations Mild intermittent asthma COVID-19 Asthma Chromosomal abnormality Leg length discrepancy Scoliosis Dysmenorrhea Vasovagal syncope Surgical History No pertinent past surgical history Family History Mother No problems noted. Father No problems noted. Brother ADHD Sister Chronic mental disorder ADHD Mental health disorder Maternal Grandmother Cancer Mental health disorder Paternal Grandfather Substance use disorder Paternal Grandmother Substance use disorder Maternal Uncle Mental health disorder Social History Household Members: Family Housing: House Alcohol intake: never Patient Tobacco Use Status: Never used Tobacco e-Cigarette/Vaping Use: Never Used Substance Use Type: Marijuana service: No Current occupational status: employed Cognitive needs: No Hearing needs: No Vision needs: Yes Female Reproductive History Menstrual Age of Menarche: 14 Review of Systems Const All systems reviewed & are unremarkable except as noted in HPI and below Physical Exam Vital Signs: Last Vital Signs Temp 98.2 F 12/15/24 12:52 Pulse 85 12/15/24 12:52 BP 102/60 12/15/24 12:52 Pulse Ox 99 12/15/24 12:52 Oxygen Delivery Method Room Air 12/15/24 12:52 BMI result Body Mass Index 19.6 Assessment & Plan Assessment & Plan (1) Asthma exacerbation: Code(s): J45.901 - Unspecified asthma with (acute) exacerbation Qualifiers: Asthma severity: mild Asthma persistence: intermittent Qualified Code(s): J45.21 - Mild intermittent asthma with (acute) exacerbation Plan Most likely asthma exacerbation vs URI vs bronchitis Plan - Administer nebulizer treatment during the visit to alleviate asthma symptoms. - Prescribe prednisone to manage the asthma exacerbation. - Refill Symbicort maintenance inhaler and albuterol rescue inhaler. - Discuss the potential benefit of obtaining a home nebulizer for future exacerbations. - VSS, pt well appearing - follow up with PCP, will send PCP a message regarding a nebulizer machine for home Orders: Orders AMB Nebulizer Treatment Today J45.901 - Unspecified asthma with (acute) exacerbation Medications: New budesonide-formoterol 80-4.5 mcg/actuation (Symbicort) 1 inh inhalation BID 10.2 grams 0RF prednisone 40 mg (2 x 20 mg) PO DAILY 10 tabs 0RF 5 days ipratropium-albuterol 0.5 mg-3 mg(2.5 mg base)/3 mL 3 mL inhalation ONCE 3 mL 0RF J45.901 - Unspecified asthma with (acute) exacerbation Refilled albuterol sulfate 90 mcg/actuation 2 puffs inhalation Q4-6H PRN 6.7 grams 0RF shortness of breath or wheezing Coding Level of Care Code Est Pt Level 4 (67569) Diagnoses Mild intermittent asthma with exacerbation J45.21 Asthma severity: mild Asthma persistence: intermittent
[2024-12-15 12:52] VITALS: BP 102/60; PULSE 85; TEMP 36.8; O2SAT 99; BMI 19.6
== END 2024-12-15 13:49 | disposition home or self-care (01) ==
PROVIDERS: PCP Internal Medicine; Visit Provider Physician Assistant Medical
DX: J45.901 Unspecified asthma with (acute) exacerbation (principal); J45.21 Mild intermittent asthma with (acute) exacerbation

== ENCOUNTER → 2024-12-15 12:42 | Outpatient (BNVA) | payer OTHER, SELFPAY | PROVIDERS: PCP Internal Medicine; Visit Provider Physician Assistant Medical | DX: J45.21 Mild intermittent asthma with (acute) exacerbation (principal) | CPT/HCPCS: 94640; 99212 ==

== ENCOUNTER → 2024-12-15 22:56 | Outpatient (BNV) | payer OTHER, SELFPAY | PROVIDERS: PCP Internal Medicine; Visit Provider Radiology Diagnostic Radiology | DX: R06.00 Dyspnea, unspecified (principal) | CPT/HCPCS: 71046 ==

== ENCOUNTER 2024-12-15 23:38 | Emergency (ER) | payer OTHER, SELFPAY ==
--- NOTE | ~2024-12-15 | XR_ITS ---
CLINICAL HISTORY: dyspnea 2 view chest x-ray Comparison: 04/18/2024 Findings: Lungs are clear without acute infiltrates. No pneumothorax. Heart size normal. Congenital thoracic vertebral anomalies. No acute bony abnormalities. Impression: No acute processes This document has been electronically signed by: Eddie Bailey MD on 12/16/2024 00:20:09
[2024-12-15 23:43] VITALS: BP 105/55; PULSE 71; RESP 18; TEMP 36.8; O2SAT 97; BMI 19.5
[2024-12-15 23:58] VITALS: PULSE 78; RESP 18; TEMP 36.8; O2SAT 99
[2024-12-16 00:13] LABS: Hematocrit 41.9 % (37.0-47.0); Hemoglobin 14.0 g/dl (12.0-16.0); Mean Corpuscular HGB Conc 33.4 g/dl (31.0-35.0); Mean Corpuscular Hemoglobin 26.4 pg (27.0-33.0); Mean Corpuscular Volume 79.1 fL (80.0-98.0); NRBC Abs Auto 0.000 X10*3/uL (0.0-0.012); NRBC Pct Auto 0.0 /100WBC (0.0-0.2); Platelet Count 240 X10*3/uL (160-400); Red Blood Count 5.30 X10*6/uL (4.20-5.50); White Blood Count 9.9 X10*3/uL (4.8-10.8)
[2024-12-16 00:15] VITALS: RESP 16; TEMP 37; O2SAT 98
[2024-12-16 00:32] LABS: Alanine Aminotransferase 15 U/L (0-31); Albumin Level 4.5 g/dL (3.5-5.0); Alkaline Phosphatase 73 U/L (39-117); Anion Gap 13 (12-20); Aspartate Amino Transferase 19 U/L (5-31); Blood Urea Nitrogen 12 mg/dL (9-16); Calcium 8.4 mg/dL (8.4-10.2); Carbon Dioxide 24 mmol/L (22-29); Chloride 108 mmol/L (96-108); Creatinine Clr Calc Pharmacy 77.1; Estimated Glomerular Filt Rate > 60; Potassium 3.8 mmol/L (3.3-5.1); Sodium 141 mmol/L (135-145); Total Protein 6.9 g/dL (6.5-8.0)
[2024-12-16 00:51] LABS: Resp Syncy Virus RNA Qual PCR NEGATIVE (Negative); SARS COV2 PCR INHOUSE NEGATIVE (Negative)
--- NOTE | 2024-12-16 01:27 | PC.NURSE ---
pt medicated per [facility] respiratory called for neb treatment. Pt advised.
[2024-12-16] MEDS: Albuterol Sulfate (0.083%) 2.5 MG/3 ML VIAL.NEB 5 MG INHALE (01:33)
[2024-12-16 01:34] VITALS: PULSE 78; RESP 16; O2SAT 98
--- NOTE | 2024-12-16 01:46 | ED.GENADULT ---
HPI - General Adult General Chief complaint: Dyspnea Stated complaint: Nebulizer given at walk in not working Time Seen by Provider: 12/16/24 01:04 Source: patient Limitations: no limitations History of Present Illness ED Provider: Sandra Nolasco PA-C HPI narrative: 24-year-old female with a history of asthma presents with a wheezing times 3-4 days. Patient denies preceding cough or cold symptoms, no fever or sick contacts. Patient is seen at urgent Care today, she was given a nebulized treatment, sent with the an inhaler, however she was not sent with steroid. Patient here secondary to refractory symptoms. Related Data Home Medications ?Medication ?Instructions ?Recorded ?Confirmed ibuprofen 600 mg tablet 600 mg PO Q8H PRN 07/26/20 12/15/24 hydroxyzine HCl 10 mg tablet 10 mg PO TID PRN anxiety 12/13/24 12/15/24 Previous Rx's ?Medication ?Instructions ?Recorded ketoconazole 2 % topical cream 1 appl topical BID #30 grams 10/08/23 cholecalciferol (vitamin D3) 1,250 1,250 mcg PO QWEEK 3 months #13 12/13/24 mcg (50,000 unit) capsule caps clotrimazole-betamethasone 1 1 appl topical BID 10 days #45 12/13/24 %-0.05 % topical cream grams montelukast 10 mg tablet 10 mg PO DAILY #90 tabs 12/13/24 albuterol sulfate 1.25 mg/3 mL 1.25 mg (3 mL) inhalation QID PRN 12/15/24 solution for nebulization shortness of breath or wheezing #75 mL albuterol sulfate 90 mcg/actuation 2 puff inhalation Q4-6H PRN 12/15/24 aerosol inhaler shortness of breath or wheezing #6.7 grams budesonide-formoterol HFA 80 1 inh inhalation BID #10.2 grams 12/15/24 mcg-4.5 mcg/actuation aerosol inhaler (Symbicort) nebulizers (AeroEclipse II #1 ea 12/15/24 Nebulizer) prednisone 20 mg tablet 40 mg (2 x 20 mg) PO DAILY 5 days 12/15/24 #10 tabs prednisone 20 mg tablet 40 mg (2 x 20 mg) PO DAILY #8 tabs 12/16/24 Allergies Allergy/AdvReac Type Severity Reaction Status Date / Time Seasonal Allergies Allergy Mild runny Verified 12/15/24 23:44 nose, sneezing Review of Systems Review of Systems: Yes all other systems are reviewed and are negative Constitutional: Constitutional: Denies fatigue and Denies fever(s) Cardiovascular: Cardiovascular: Denies chest pain and Reports dyspnea Respiratory: Respiratory: Denies cough, Reports dyspnea and Reports wheezing Endocrine: Endocrine: Denies fatigue Allergic/Immunologic: Allergic/Immunologic: Reports wheezing PMFSH Past Medical History Attestation statement: The following information was validated with the patient. Medical History (Updated 12/16/24 @ 01:56 by SARAH Watson) Vitamin D deficiency Urticaria Tinea cruris Family history of thyroid disorder Intermittent palpitations Mild intermittent asthma COVID-19 Asthma Chromosomal abnormality Leg length discrepancy Scoliosis Dysmenorrhea Vasovagal syncope Surgical History No pertinent past surgical history Family History Family History Mother No problems noted. Father No problems noted. Brother ADHD Sister Chronic mental disorder ADHD Mental health disorder Maternal Grandmother Cancer Mental health disorder Paternal Grandfather Substance use disorder Paternal Grandmother Substance use disorder Maternal Uncle Mental health disorder Social History Social History Household Members: Family Housing: House Alcohol intake: never Patient Tobacco Use Status: Never used Tobacco Smoked in Last 30 Days: No e-Cigarette/Vaping Use: Never Used Use of substances other than those prescribed or required for medical reasons: Yes Substance Use Type: Marijuana Advance Directives: No Advance Directives Information Provided: Yes Patient : No service: No Current occupational status: employed Cognitive needs: No Hearing needs: No Vision needs: Yes Physical Exam ED Vital Signs: Vital Signs - 24 hr 12/15/24 23:43 12/15/24 23:58 12/16/24 00:15 Temperature 98.3 F 98.3 F 98.6 F Pulse Rate 71 78 Respiratory Rate 18 18 16 Blood Pressure 105/55 L Pulse Oximetry 97 99 98 Oxygen Delivery Method Room Air Room Air Room Air 12/16/24 01:34 Temperature Pulse Rate 78 Respiratory Rate 16 Blood Pressure Pulse Oximetry Oxygen Delivery Method BMI result Body Mass Index 19.5 Const Other: Alert Orientation/consciousness: patient oriented x3 Resp Other: Lungs clear to auscultation no wheezing Cardio Other: Normal peripheral perfusion Skin Other: Warm dry no rash Neuro General: patient oriented x3, gait normal, no focal motor deficits and CN's II-XI intact bilaterally Psych Other: Cooperative Medications Administered Discontinued Medications Generic Name Dose Route Start Last Admin Trade Name Nathanielq PRN Reason Stop Dose Admin Albuterol Sulfate 5 mg 12/16/24 01:20 12/16/24 01:33 Albuterol Sulfate (0.083%) 2.5 Mg/3 Ml Vial.Neb INHALE 12/16/24 01:21 5 mg ONCE ONE Administration Prednisone 40 mg 12/16/24 01:20 12/16/24 01:25 Prednisone 20 Mg Tablet PO 12/16/24 01:21 40 mg ONCE ONE Administration Medical Decision Making Medical Decision Making [facility] Narrative: 24-year-old female with a history of asthma presents with a wheezing times 3-4 days. Patient denies preceding cough or cold symptoms, no fever or sick contacts. Patient is seen at urgent Care today, she was given a nebulized treatment, sent with the an inhaler, however she was not sent with steroid. Patient here secondary to refractory symptoms. Problem: Asthma History: Per patient I have considered the following differential diagnoses: Asthma exacerbation, bronchitis, pneumonia, viral syndrome, seasonal allergies Plan: Patient was seen at urgent Care, her asthma has been triggered, she has not had preceding viral syndrome. Screening labs, viral panel and chest x-ray were obtained from triage. We will give a short nebulized treatment here, starting her on steroid, which is what she requires. We will send with the additional steroid burst. I have independently reviewed the following tests: Labs: No leukocytosis, not anemic, no electrolyte abnormality, viral panel negative Chest x-ray:Findings: Lungs are clear without acute infiltrates. No pneumothorax. Heart size normal. Congenital thoracic vertebral anomalies. No acute bony abnormalities. Impression: No acute processes Differential Diagnosis Differential Diagnoses: The differential diagnosis associated with the presentation includes See [facility] Admission/Observation Consideration of admission/observation: Escalation of care including admission/observation considered Not applicable Lab Data [facility] Lab Attestation statement: I reviewed the patient's lab results. 12/16/24 00:07 12/16/24 00:07 Labs: Lab Results 12/16/24 Range/Units 00:07 WBC 9.9 (4.8-10.8) X10*3/uL RBC 5.30 (4.20-5.50) X10*6/uL Hgb 14.0 (12.0-16.0) g/dl Hct 41.9 (37.0-47.0) % MCV 79.1 L (80.0-98.0) fL MCH 26.4 L (27.0-33.0) pg MCHC 33.4 (31.0-35.0) g/dl RDW 13.9 (11.0-16.0) % Plt Count 240 (160-400) X10*3/uL MPV 10.3 (9.4-12.3) fL Absolute Nucleated RBC 0.000 (0.0-0.012) X10*3/uL Nucleated RBC % (auto) 0.0 (0.0-0.2) /100WBC Sodium 141 (135-145) mmol/L Potassium 3.8 (3.3-5.1) mmol/L Chloride 108 (96-108) mmol/L Carbon Dioxide 24 (22-29) mmol/L Anion Gap 13 (12-20) BUN 12 (9-16) mg/dL Creatinine 0.78 (0.5-1.4) mg/dL Estim Creat Clear Calc 77.1 Estimated GFR > 60 Random Glucose 93 (60-115) mg/dL Calcium 8.4 D (8.4-10.2) mg/dL Total Bilirubin 0.2 (0.0-1.0) mg/dL AST 19 (5-31) U/L ALT 15 (0-31) U/L Alkaline Phosphatase 73 (39-117) U/L Total Protein 6.9 (6.5-8.0) g/dL Albumin 4.5 (3.5-5.0) g/dL Influenza Type A (PCR) NEGATIVE (Negative) Influenza Type B (PCR) NEGATIVE (Negative) RSV RNA Qual (PCR) NEGATIVE (Negative) SARS-CoV-2 RNA (RT-PCR) NEGATIVE (Negative) Independent Interpretation I performed an independent interpretation of an: EKG Radiology Impression Discussion of test interpretation with radiology: I have reviewed the radiologist's reading. Discharge Plan Discharge Clinical Impression: Asthma exacerbation Patient Disposition: Home, Self-Care Instructions: Asthma (ED) Additional Instructions: All of your screening labs were negative. You were screened for influenza RSV and COVID, the viral panel was negative as well. The chest x-ray is clear. You are being treated for an asthma exacerbation. Use your inhalers at home nebulizer as directed. Take the steroid as directed. Follow up with primary care as needed. Prescriptions: New prednisone 20 mg tablet 40 mg PO DAILY Qty: 8 0RF No Action albuterol sulfate 1.25 mg/3 mL solution for nebulization 1.25 mg inhalation QID PRN (Reason: shortness of breath or wheezing) Qty: 75 0RF (DME) nebulizers [AeroEclipse II Nebulizer] Misc See Rx Instructions .Route Qty: 1 0RF Rx Instructions: As directed every 6 hours as needed for episodes of wheezing and bronchospasm ketoconazole 2 % cream 1 appl topical BID Qty: 30 0RF ibuprofen 600 mg tablet 600 mg PO Q8H PRN hydroxyzine HCl 10 mg tablet 10 mg PO TID PRN (Reason: anxiety) clotrimazole-betamethasone 1-0.05 % cream 1 appl topical BID 10 Days Qty: 45 0RF montelukast 10 mg tablet 10 mg PO DAILY Qty: 90 1RF cholecalciferol (vitamin D3) 1,250 mcg (50,000 unit) capsule 1,250 mcg PO QWEEK 90 Days Qty: 13 0RF budesonide-formoterol [Symbicort] 80-4.5 mcg/actuation HFA aerosol inhaler 1 inh inhalation BID Qty: 10.2 0RF albuterol sulfate 90 mcg/actuation HFA aerosol inhaler 2 puff inhalation Q4-6H PRN (Reason: shortness of breath or wheezing) Qty: 6.7 0RF prednisone 20 mg tablet 40 mg PO DAILY 5 Days Qty: 10 0RF Stand Alone Forms: Work/School Release Print Language: Nepali
[2024-12-16 02:06] VITALS: BP 95/60; PULSE 72; RESP 15; TEMP 36.6; O2SAT 98
[2024-12-16 02:10] VITALS: BP 101/68; PULSE 93; RESP 16; TEMP 36.7; O2SAT 99
[2024-12-16 02:18] VITALS: BP 101/68; PULSE 93; RESP 16; TEMP 36.7; O2SAT 99
== END 2024-12-16 02:19 | disposition home or self-care (01) ==
PROVIDERS: Emergency Provider Emergency Medicine; PCP Internal Medicine
DX: J45.901 Unspecified asthma with (acute) exacerbation (principal); R06.02 Shortness of breath; Z03.818 Encounter for observation for suspected exposure to other biological agents ruled out; Z79.899 Other long term (current) drug therapy
CPT/HCPCS: 71046; 80053; 85027; 87637; 99284

== ENCOUNTER 2024-12-19 16:30 | Emergency (ER) | payer SELFPAY ==
--- NOTE | ~2024-12-19 | XR_ITS ---
CLINICAL HISTORY: SOB 1 view chest x-ray. Comparison: 12/15/2024 Findings: Heart size normal. No acute fracture. Moderate scoliosis with vertebral body congenital anomalies. Impression: Lungs are well-aerated. No consolidations. No pneumothorax Appearance is unchanged from previous exam. This document has been electronically signed by: Rojelio Maurice MD on 12/19/2024 18:00:34
[2024-12-19 16:55] VITALS: BP 95/54; PULSE 96; RESP 20; TEMP 36.7; O2SAT 98; BMI 19.9
--- NOTE | 2024-12-19 17:02 | ECG_ITS ---
Test Reason : SOB Blood Pressure : */* mmHG Vent. Rate : 72 BPM Atrial Rate : 72 BPM P-R Int : 126 ms QRS Dur : 82 ms QT Int : 372 ms P-R-T Axes : 56 59 43 degrees QTcB Int : 407 ms Normal sinus rhythm Low voltage QRS Borderline ECG When compared with ECG of 19-Sep-2020 19:54, No significant change was found Referred By: Ilia Mills Electronically Signed By: VALENTINA DENTON
[2024-12-19 17:34] LABS: MANUAL DIFF FLAG NO
[2024-12-19 17:46] LABS: Hematocrit 40.2 % (37.0-47.0); Hemoglobin 13.6 g/dl (12.0-16.0); Imm Gran Abs Auto 0.02 X10*3/uL (0.00-0.03); Imm Gran Pct Auto 0.2 % (0.0-0.4); Lymphocytes Absolute Auto 1.0 X10*3/uL (1.2-4.9); Mean Corpuscular HGB Conc 33.8 g/dl (31.0-35.0); Mean Corpuscular Hemoglobin 26.8 pg (27.0-33.0); Mean Corpuscular Volume 79.1 fL (80.0-98.0); NRBC Abs Auto 0.000 X10*3/uL (0.0-0.012); NRBC Pct Auto 0.0 /100WBC (0.0-0.2); Platelet Count 237 X10*3/uL (160-400); Red Blood Count 5.08 X10*6/uL (4.20-5.50); White Blood Count 8.1 X10*3/uL (4.8-10.8)
[2024-12-19 17:49] LABS: Alanine Aminotransferase 19 U/L (0-31); Albumin Level 4.4 g/dL (3.5-5.0); Alkaline Phosphatase 68 U/L (39-117); Anion Gap 11 (12-20); Aspartate Amino Transferase 19 U/L (5-31); Blood Urea Nitrogen 17 mg/dL (9-16); Calcium 8.9 mg/dL (8.4-10.2); Carbon Dioxide 25 mmol/L (22-29); Chloride 108 mmol/L (96-108); Creatinine Clr Calc Pharmacy 78.0; Estimated Glomerular Filt Rate > 60; Potassium 4.3 mmol/L (3.3-5.1); Sodium 140 mmol/L (135-145); Total Protein 6.8 g/dL (6.5-8.0)
[2024-12-19 17:51] LABS: INTERNATIONAL NORM RATIO 1.0 (0.9-1.1); Prothrombin Time 11.0 SEC (10.9-12.4)
--- NOTE | 2024-12-19 17:52 | ED.GENADULT ---
HPI - General Adult General Chief complaint: Dyspnea Stated complaint: cant breathe Time Seen by Provider: 12/19/24 21:02 Source: patient and old records reviewed Mode of arrival: ambulatory Limitations: no limitations History of Present Illness ED Provider: Dr. Josie Gilmore HPI narrative: 24-year-old female with a history of anxiety, depression, scoliosis, POTS, asthma presenting with shortness of breath that has been ongoing for over a week now. She admits she was seen at the urgent care and was given an inhaler which did not help much. She then came to the emergency department 3 days ago, was diagnosed with asthma exacerbation and given a course of steroids. Admits that her shortness of breath continues and now she is feeling tight in her chest. She does not feel wheezy. She does not feel that this is similar to previous asthma exacerbations. Normally her asthma improves with nebulizer treatments. She denies associated fever, sputum production, abdominal pain, nausea or vomiting, bowel changes, urinary complaints, lower extremity edema or pain, family history of early onset heart disease or sudden cardiac , exogenous estrogen use. Related Data Home Medications ?Medication ?Instructions ?Recorded ?Confirmed ibuprofen 600 mg tablet 600 mg PO Q8H PRN 07/26/20 12/15/24 hydroxyzine HCl 10 mg tablet 10 mg PO TID PRN anxiety 12/13/24 12/15/24 Previous Rx's ?Medication ?Instructions ?Recorded ketoconazole 2 % topical cream 1 appl topical BID #30 grams 10/08/23 cholecalciferol (vitamin D3) 1,250 1,250 mcg PO QWEEK 3 months #13 12/13/24 mcg (50,000 unit) capsule caps clotrimazole-betamethasone 1 1 appl topical BID 10 days #45 12/13/24 %-0.05 % topical cream grams montelukast 10 mg tablet 10 mg PO DAILY #90 tabs 12/13/24 albuterol sulfate 1.25 mg/3 mL 1.25 mg (3 mL) inhalation QID PRN 12/15/24 solution for nebulization shortness of breath or wheezing #75 mL albuterol sulfate 90 mcg/actuation 2 puff inhalation Q4-6H PRN 12/15/24 aerosol inhaler shortness of breath or wheezing #6.7 grams budesonide-formoterol HFA 80 1 inh inhalation BID #10.2 grams 12/15/24 mcg-4.5 mcg/actuation aerosol inhaler (Symbicort) prednisone 20 mg tablet 40 mg (2 x 20 mg) PO DAILY 5 days 12/15/24 #10 tabs prednisone 20 mg tablet 40 mg (2 x 20 mg) PO DAILY #8 tabs 12/16/24 nebulizers (AeroEclipse II #1 ea 12/18/24 Nebulizer) Allergies Allergy/AdvReac Type Severity Reaction Status Date / Time Seasonal Allergies Allergy Mild runny Verified 12/19/24 16:57 nose, sneezing Review of Systems Review of Systems: as per HPI, full review of systems performed and negative but for the above mentioned pertinent positives and negatives. [facility] Past Medical History Medical History Vitamin D deficiency Urticaria Tinea cruris Family history of thyroid disorder Intermittent palpitations Mild intermittent asthma COVID-19 Asthma Chromosomal abnormality Leg length discrepancy Scoliosis Dysmenorrhea Vasovagal syncope Surgical History No pertinent past surgical history Family History Family History Mother No problems noted. Father No problems noted. Brother ADHD Sister Chronic mental disorder ADHD Mental health disorder Maternal Grandmother Cancer Mental health disorder Paternal Grandfather Substance use disorder Paternal Grandmother Substance use disorder Maternal Uncle Mental health disorder Social History Social History Household Members: Family Housing: House Alcohol intake: never Patient Tobacco Use Status: Never used Tobacco Smoked in Last 30 Days: No e-Cigarette/Vaping Use: Never Used Use of substances other than those prescribed or required for medical reasons: Yes Substance Use Type: Marijuana Advance Directives: Yes Advance Directives on File: Yes Advance Directives Date on File: 10/08/23 service: No Current occupational status: employed Cognitive needs: No Hearing needs: No Vision needs: Yes Physical Exam ED Exam Exam: GENERAL: Anxious, well-appearing. SKIN: Normal skin color for ethnicity, warm, dry, intact, no rashes noted. HEENT: Normocephalic, atraumatic, no stridor, posterior oropharynx nonerythematous, dentition intact, EOMI. NECK: Soft, supple, full ROM, midline structures nontender, no step-offs, no deformities, no lymphadenopathy. CHEST: Heart regular rhythm, no murmurs, symmetric chest rise and fall, no crepitus. PULMONARY: Clear to auscultation bilaterally, slight tachypnea, diminished at the bases, no wheezes/rhales/ rhonchi. ABDOMINAL: Soft, nondistended, nontender, positive bowel sounds in all quadrants. : Deferred. MUSCULOSKELETAL: Normal tone, full range of motion, no deformities, no peripheral edema. NEURO: Alert and oriented x3, CN II through XII intact, equal strength and sensation bilateral upper and lower extremities, no focal neurologic deficits. PSYCHIATRIC: Anxious affect, fluid speech, good eye contact and appropriate demeanor. Vital Signs: Vital Signs - 24 hr 12/19/24 16:55 12/19/24 19:39 12/19/24 23:20 Temperature 98.1 F 98.2 F Pulse Rate 96 75 69 Respiratory Rate 20 17 16 Blood Pressure 95/54 L 94/64 109/72 Pulse Oximetry 98 99 98 Oxygen Delivery Method Room Air Room Air Room Air 12/20/24 00:00 12/20/24 01:26 12/20/24 01:33 Temperature 98 F 97.8 F 97.8 F Pulse Rate 72 59 59 Respiratory Rate 18 16 16 Blood Pressure 100/70 108/69 108/69 Pulse Oximetry 100 98 98 Oxygen Delivery Method Room Air Room Air Room Air BMI result Body Mass Index 19.9 Course Course Course Narrative: RME: 24 yold female presents to the ED For one week of shortness of breath. Patient was treated as asthma last week. labs, EKG, and chest xray ordere.d Medications Administered Discontinued Medications Generic Name Dose Route Start Last Admin Trade Name Freq PRN Reason Stop Dose Admin Diazepam 2 mg 12/20/24 00:47 12/20/24 01:00 Diazepam 2 Mg Tablet PO 12/20/24 00:48 2 mg ONCE ONE Administration Magnesium Sulfate 2 gm in 50 mls @ 150 mls/hr 12/19/24 21:54 12/19/24 22:58 Magnesium Sulfate/H2o IV 12/19/24 22:13 Infused ONCE ONE Infusion Medical Decision Making Medical Decision Making [facility] Narrative: Patient presents today with chief complaint of shortness of breath. Differential diagnosis includes, but is not limited to, upper respiratory infection, pneumonia, COPD exacerbation, asthma exacerbation, CHF, pneumothorax, pleural effusion, pulmonary embolism, ACS. Broad-based work-up will be initiated to evaluate for etiology of patient's symptoms. Workup thus far is unremarkable. Chest x-ray is clear. She is low risk Wells criteria. We will add on a D-dimer to evaluate for PE. In the meantime I am going to try a dose of magnesium to see if this opens are up a bit better. Ultimately, I do believe this is likely asthma related however we will rule out PE. Heart score is 0. EKG is nonischemic. D-dimer is negative. Patient continues to have dyspnea. We did have an extensive discussion regarding causes of dyspnea and chest tightness and emergency department workups. I encouraged her to follow up with primary care, possible pulmonology versus rheumatology workups as an outpatient. Discussed return precautions. She understands and agrees with plan for discharge. Discharged home in stable condition. Differential Diagnosis Differential Diagnoses: The differential diagnosis associated with the presentation includes (As above) Admission/Observation Consideration of admission/observation: Escalation of care including admission/observation considered Lab Data [facility] Lab Attestation statement: I reviewed the patient's lab results. 12/19/24 17:29 12/19/24 17:29 Labs: Lab Results 12/19/24 Range/Units 17:29 WBC 8.1 (4.8-10.8) X10*3/uL RBC 5.08 (4.20-5.50) X10*6/uL Hgb 13.6 (12.0-16.0) g/dl Hct 40.2 (37.0-47.0) % MCV 79.1 L (80.0-98.0) fL MCH 26.8 L (27.0-33.0) pg MCHC 33.8 (31.0-35.0) g/dl RDW 13.8 (11.0-16.0) % Plt Count 237 (160-400) X10*3/uL MPV 10.7 (9.4-12.3) fL Immature Gran % (Auto) 0.2 (0.0-0.4) % Neut % (Auto) 81.8 H (45-73) % Lymph % (Auto) 12.4 L (20-40) % [place] % (Auto) 5.4 (2-11) % Eos % (Auto) 0.0 (0-4) % Baso % (Auto) 0.2 (0-2) % Lymph # (Auto) 1.0 L (1.2-4.9) X10*3/uL [place] # (Auto) 0.4 (0.1-1.2) X10*3/uL Eos # (Auto) 0.0 (0.0-0.4) X10*3/uL Baso # (Auto) 0.0 (0.0-0.2) X10*3/uL Abs Immat Gran (auto) 0.02 (0.00-0.03) X10*3/uL Absolute Neuts (auto) 6.7 (2.0-8.3) x10*3/uL Absolute Nucleated RBC 0.000 (0.0-0.012) X10*3/uL Nucleated RBC % (auto) 0.0 (0.0-0.2) /100WBC PT 11.0 (10.9-12.4) SEC INR 1.0 (0.9-1.1) APTT 25.1 L (26.7-34.1) SEC D-Dimer High Sensitivty 201 NG/ML Sodium 140 (135-145) mmol/L Potassium 4.3 (3.3-5.1) mmol/L Chloride 108 (96-108) mmol/L Carbon Dioxide 25 (22-29) mmol/L Anion Gap 11 L (12-20) BUN 17 H (9-16) mg/dL Creatinine 0.73 (0.5-1.4) mg/dL Estim Creat Clear Calc 78.0 Estimated GFR > 60 Random Glucose 98 (60-115) mg/dL Calcium 8.9 (8.4-10.2) mg/dL Total Bilirubin 0.2 (0.0-1.0) mg/dL AST 19 (5-31) U/L ALT 19 (0-31) U/L Alkaline Phosphatase 68 (39-117) U/L Troponin I High Sens < 2.7 (<3.5-17.0) ng/L Total Protein 6.8 (6.5-8.0) g/dL Albumin 4.4 (3.5-5.0) g/dL Influenza Type A (PCR) NEGATIVE (Negative) Influenza Type B (PCR) NEGATIVE (Negative) RSV RNA Qual (PCR) NEGATIVE (Negative) SARS-CoV-2 RNA (RT-PCR) NEGATIVE (Negative) Independent Interpretation I performed an independent interpretation of an: EKG Interpretation: My independent interpretation of the ECG reveals normal sinus rhythm with rate of but 72, normal axis, normal intervals, no ST elevations or depressions to suggest ischemic changes, relatively unchanged from previous on 09/19/2020. My independent interpretation of the chest x-ray reveals no consolidations, pulmonary edema, pleural effusion, pneumothorax, obvious bony abnormalities. Radiology Impression Discussion of test interpretation with radiology: I have reviewed the radiologist's reading. Radiologist Impression: 1 view chest x-ray. Comparison: 12/15/2024 Findings: Heart size normal. No acute fracture. Moderate scoliosis with vertebral body congenital anomalies. Impression: Lungs are well-aerated. No consolidations. No pneumothorax Appearance is unchanged from previous exam. This document has been electronically signed by: Rojelio Maurice MD on 12/19/2024 18:00:34 External Record Review External record reviewed: Inpatient record and Prior outpatient labs Chronic Conditions Patient?s care impacted by: Other (Asthma) Discharge Plan Discharge Clinical Impression: Chronic dyspnea, Non-cardiac chest pain Patient Disposition: Home, Self-Care Instructions: Dyspnea (ED) Additional Instructions: DIAGNOSIS & TREATMENT: You were seen in the Emergency Department for your chest discomfort. We performed an EKG, laboratory work and chest xray which did not reveal any acute abnormalities that would explain your symptoms. FURTHER CARE: We have not found any emergent physical exam or lab abnormalities that would require admission to the hospital today. Many people who come to the ER with chest discomfort do not leave with a specific diagnosis at the end of their visit. In the Emergency Department we try to make sure that there is no emergent problem that needs admission to the hospital or antibiotics right now. This does not mean that your evaluation is complete--please be sure to follow up with your regular doctor as additional testing as an outpatient may be indicated. Please be certain to drink plenty of fluids over the next several days. WHEN YOU SHOULD BE SEEN NEXT: Please follow-up with your primary care provider within the next 2-3 days for reevaluation of your symptoms. WHEN TO RETURN TO THE ED: Monitor your symptoms closely and return to the emergency department immediately for any new/worsening symptoms including: Worsening chest pain, difficulty breathing, fevers greater than 100 degrees, passing out, any new symptom that concerns you. Call 911 with any medical emergency. Prescriptions: No Action albuterol sulfate 1.25 mg/3 mL solution for nebulization 1.25 mg inhalation QID PRN (Reason: shortness of breath or wheezing) Qty: 75 0RF (DME) nebulizers [AeroEclipse II Nebulizer] Misc See Rx Instructions .Route Qty: 1 0RF Rx Instructions: As directed every 6 hours as needed for episodes of wheezing and bronchospasm prednisone 20 mg tablet 40 mg PO DAILY Qty: 8 0RF ketoconazole 2 % cream 1 appl topical BID Qty: 30 0RF ibuprofen 600 mg tablet 600 mg PO Q8H PRN hydroxyzine HCl 10 mg tablet 10 mg PO TID PRN (Reason: anxiety) clotrimazole-betamethasone 1-0.05 % cream 1 appl topical BID 10 Days Qty: 45 0RF montelukast 10 mg tablet 10 mg PO DAILY Qty: 90 1RF cholecalciferol (vitamin D3) 1,250 mcg (50,000 unit) capsule 1,250 mcg PO QWEEK 90 Days Qty: 13 0RF budesonide-formoterol [Symbicort] 80-4.5 mcg/actuation HFA aerosol inhaler 1 inh inhalation BID Qty: 10.2 0RF albuterol sulfate 90 mcg/actuation HFA aerosol inhaler 2 puff inhalation Q4-6H PRN (Reason: shortness of breath or wheezing) Qty: 6.7 0RF prednisone 20 mg tablet 40 mg PO DAILY 5 Days Qty: 10 0RF Interventions: ED Discharge Assessment Last Done: 12/20/24 01:33 Discharge Date/Time: 12/20/24 01:37 Print Language: Upper Sorbian
[2024-12-19 17:54] LABS: Partial Thromboplastin Time 25.1 SEC (26.7-34.1)
[2024-12-19 18:01] LABS: Troponin-I High Sensitivity < 2.7 ng/L (<3.5-17.0)
[2024-12-19 18:11] LABS: Resp Syncy Virus RNA Qual PCR NEGATIVE (Negative); SARS COV2 PCR INHOUSE NEGATIVE (Negative)
[2024-12-19 19:39] VITALS: BP 94/64; PULSE 75; RESP 17; TEMP 36.8; O2SAT 99
--- NOTE | 2024-12-19 19:42 | PC.NURSE ---
Patient presenting to the ED with SOBOE, and at rest at times. Patient stating seen her recently for this issue, and seen at an for the same issue, given updrafts with no relief, and prednisone. Has two days left on script. No improvement. Oxygen is 99% while in stretcher. States she feels her SOB getting worse while walking. Reports a cough but not able to bring anything up. Previous tested for covid flu and rsv. Negative at the time. Onset of symptoms was 5 days ago. Pt has a hx of asthma but this does not feel like it Denie fever, chills, body aches and lightheadness. Patient is alert and oriented x 4. RR even and non labored. Sitting in stretcher with the callbell in reach. Plan of care pending...
--- OUTSIDE RECORDS SUMMARY | 2024-12-19 19:48 | XMS_ITS | Clinical Summary ---
Author Organization [facility] Address [address] [place] [id number] Phone Care Team Providers Care Sample Dye Mixer Name Role Phone Neva Rucker MD Primary [...] Medical Devices Not on file Insurance [facility] [place] [address] [place] [address] [place] [address] [place] [address] ACO [facility] Care Teams Sample Dye Mixer Relationship Specialty Start Date End Date Neva Rucker MD [address] [place] [address] PCP - General Internal Medicine 11/09/23 Additional Source Comments The information contained in this document represents components of the legal health record. It is not the complete legal health record.[facility]
--- NOTE | 2024-12-19 19:50 | PC.NURSE ---
Patient walked independently to bathroom with a steady table gait. Patient able to handle ADLS independently and appropriately. Patient is back in the stretcher with call santos by.
[2024-12-19] MEDS: Magnesium Sulfate/H2O 2 GM/50 ML PIGGYBACK IV (22:08)
[2024-12-19 22:09] LABS: D Dimer High Sensitivity 201 NG/ML
[2024-12-19 23:20] VITALS: BP 109/72; PULSE 69; RESP 16; O2SAT 98
[2024-12-20] VITALS: BP 100/70; PULSE 72; RESP 18; TEMP 36.6; O2SAT 100
[2024-12-20 01:26] VITALS: BP 108/69; PULSE 59; RESP 16; TEMP 36.6; O2SAT 98
[2024-12-20 01:33] VITALS: BP 108/69; PULSE 59; RESP 16; TEMP 36.6; O2SAT 98
== END 2024-12-20 01:37 | disposition home or self-care (01) ==
PROVIDERS: Physician Assistant; Emergency Provider Emergency Medicine; PCP Internal Medicine
DX: R06.00 Dyspnea, unspecified (principal); J45.20 Mild intermittent asthma, uncomplicated; F41.9 Anxiety disorder, unspecified; F32.A Depression, unspecified; G90.A Postural orthostatic tachycardia syndrome [POTS]; E55.9 Vitamin D deficiency, unspecified; R00.2 Palpitations; F12.90 Cannabis use, unspecified, uncomplicated
CPT/HCPCS: 71045; 80053; 84484; 85025; 85379; 85610; 85730; 87637; 93005; 99285; J3475

== ENCOUNTER → 2024-12-19 17:02 | Outpatient (BNV) | payer OTHER, SELFPAY | PROVIDERS: Visit Provider Radiology Diagnostic Radiology | DX: R06.02 Shortness of breath (principal) | CPT/HCPCS: 71045 ==

== ENCOUNTER → 2024-12-19 17:02 | Outpatient (BNV) | payer OTHER, SELFPAY | PROVIDERS: Emergency Provider Emergency Medicine; PCP Internal Medicine; Visit Provider Internal Medicine | DX: R06.02 Shortness of breath (principal) | CPT/HCPCS: 93010 ==

== ENCOUNTER 2024-12-27 13:39 | Outpatient (REF) | payer OTHER, SELFPAY ==
[2025-01-02 15:08] LABS: Anti Nuclear Antibody Screen POSITIVE (NEGATIVE); Anti Nuclear Antibody Titer 1:80 titer
== END 2024-12-27 13:40 | disposition home or self-care (01) ==
LOC: HO.HMGCLDS 13:39
PROVIDERS: PCP Internal Medicine; Visit Provider Internal Medicine
DX: R06.02 Shortness of breath (principal); T50.B95A Adverse effect of other viral vaccines, initial encounter; Z79.899 Other long term (current) drug therapy; Z87.898 Personal history of other specified conditions
CPT/HCPCS: 36415; 86038; 86039; 99212

== ENCOUNTER 2024-12-27 13:39 | Outpatient (AMB) | payer OTHER, SELFPAY ==
--- NOTE | 2024-12-27 13:48 | MHC.PC.OV ---
Vital Signs 12/27/24 13:50 Height 4 ft 11 in Weight 97 lb 2 oz BMI 19.6 BP 108/80 Blood Pressure Location Lt brachial Position Sitting Respiration 17 Pulse 61 Pulse Source Pulse Oximeter Temp 98.1 F Temp Source Oral Pulse Oximetry (%) 98 Oxygen Delivery Method Room Air Intake Visit Reasons: f/u SOB Intake Note: Pt is here today f/u [facility] dyspnea Allergies Seasonal Allergies Allergy (Mild, Verified 01/01/25 01:10) runny nose, sneezing Medication List - Last Reconciled 01/01/25 by Neva Rucker MD albuterol sulfate 90 mcg/actuation 2 puffs inhalation Q4-6H PRN albuterol sulfate 1.25 mg (3 mL) inhalation QID PRN budesonide-formoterol 80-4.5 mcg/actuation (Symbicort) 1 inh inhalation BID cholecalciferol (vitamin D3) 1,250 mcg PO QWEEK 3 months clotrimazole-betamethasone 1-0.05 % 1 appl topical BID 10 days hydroxyzine HCl 10 mg PO TID PRN ibuprofen 600 mg PO Q8H PRN ketoconazole 2% 1 appl topical BID lamotrigine mg PO montelukast 10 mg PO DAILY nebulizers (AeroEclipse II Nebulizer) As directed every 6 hours as needed for episodes of wheezing and bronchospasm Tobacco use date assessed: 12/27/24 Dental Screening Dental Screen Date: 12/27/24 Did you have a dental visit in the last 12 months?: No Did you have a dental problem in the last 6 months where you did not have access to dental care?: No Was dental information given to patient?: Patient has dentist HPI f/u SOB HPI Details 24-year-old lady with a history of anxiety, depression, scoliosis, POTS, mild intermittent asthma presenting here today for follow-up after recent ER visit complaining of with shortness of breath that has been ongoing for over a week now. She was seen at the urgent care recently, and was given an inhaler which did not help much. She then came to the emergency department 3 days ago, was diagnosed with asthma exacerbation and given a course of steroids, which has not afforded any relief.. She states that her shortness of breath cysts and he is accompanied by chest tightness, no wheezing , and does not feel like an asthma attack. She denies any accompanying fever, no cough,, abdominal pain, nausea or vomiting, bowel changes, urinary complaints, lower extremity edema or pain, chest x-ray done at the ER showedLungs are well-aerated, no consolidations, no pneumothorax. . EKG was done showed normal sinus rhythm with no acute ST-T changes seen. Pulmonary embolism was ruled out. At present patient still continues to feel short of breath, but no other accompanying symptoms reported. No anxiety episodes. It is noted that she had positive TREV screening 2020 with a negative rheumatoid factor. [facility] Medical History (Updated 12/27/24 @ 14:25 by Neva Rucker MD) History of elevated antinuclear antibody (TREV) Vitamin D deficiency Urticaria Tinea cruris Family history of thyroid disorder Intermittent palpitations Mild intermittent asthma COVID-19 Asthma Chromosomal abnormality Leg length discrepancy Scoliosis Dysmenorrhea Vasovagal syncope Surgical History No pertinent past surgical history Family History Mother No problems noted. Father No problems noted. Brother ADHD Sister Chronic mental disorder ADHD Mental health disorder Maternal Grandmother Cancer Mental health disorder Paternal Grandfather Substance use disorder Paternal Grandmother Substance use disorder Maternal Uncle Mental health disorder Social History Household Members: Family Housing: House Alcohol intake: never Patient Tobacco Use Status: Never used Tobacco e-Cigarette/Vaping Use: Never Used Substance Use Type: Marijuana Advance Directives Date on File: 10/08/23 service: No Current occupational status: employed Cognitive needs: No Hearing needs: No Vision needs: Yes Female Reproductive History Menstrual Age of Menarche: 14 Questionnaire Thrive Questionnaire Date Thrive assessed: 12/13/24 I am a: Patient What is your living situation today?: I have a steady place to live Within the past 12 months, did the food you bought not last and you didn't have the money to get more?: Sometimes True Within the past 12 months, did you worry whether your food would run out before you got money to buy more?: Never true Do you have trouble paying for medicines?: No Do you have trouble getting transportation to medical appointments?: No Do you have trouble paying your heating and electricity bill?: No Do you have trouble taking care of your child, family member or friend?: No Do you have trouble with day-to-day activities such as bathing, preparing meals, shopping, managing finances, etc.?: No Are you currently unemployed and looking for a job?: No Are you interested in more education?: No Currently or been in a relationship where the following occur: No concerns reported THRIVE Score: 1 PATRICK-7 AMB Questionnaire PATRICK-7 Date PATRICK - 7 assessed: 12/13/24 Source: Developed by Drs. Lenny Hurst, Camille Blunt, Juan Ly and colleagues, with an educational alisa from [employer]. Review of Systems Const All systems reviewed & are unremarkable except as noted in HPI and below Physical exam (Primary Care) Vital Signs: Last Vital Signs Temp 98.1 F 12/27/24 13:50 Pulse 61 12/27/24 13:50 Resp 17 12/27/24 13:50 BP 108/80 12/27/24 13:50 Pulse Ox 98 12/27/24 13:50 Oxygen Delivery Method Room Air 12/27/24 13:50 BMI result Body Mass Index 19.6 Tobacco/Smoking Status: Tobacco use Status Tobacco use date assessed 12/27/24 12/27/24 13:52 Patient Tobacco Use Status Never used Tobacco 12/27/24 13:52 e-Cigarette/Vaping Use Never Used 12/27/24 13:52 Thrive Assessment: Date of Thrive Assessment Date Thrive assessed 12/13/24 12/27/24 13:52 Currently or been in a relationship where the following occur: No concerns reported Const General: no acute distress and alert Orientation/consciousness: patient oriented x3 HENMT Ears: external ears normal General nose exam: Normal external nose present Mouth: Normal oral and palatal mucosa present, oropharynx normal and moist mucous membranes Eyes General: appearance normal, both eyes and all related structures Neck Neck: Yes full ROM, Yes no lymphadenopathy and Yes supple Resp Effort & Inspection: normal respiratory effort and able to speak in complete sentences Auscultation: clear to auscultation bilaterally Cardio Rate: regular rate Rhythm: regular rhythm Heart sounds: S1 normal heart sound present and S2 normal heart sound present GI Palpation (GI): Soft to palpation, nontender and no masses Auscultation: normal bowel sounds Skin General skin exam: no rashes or lesions noted Neuro General: patient oriented x3, gait normal, tone normal, moves all extremities, Normal light touch and pain sensation and no focal motor deficits Cranial nerves: Yes CN's II-XII intact bilaterally Cognition (Neuro): normal cognition Extrem General: Yes full ROM, Yes no joint enlargement, Yes no clubbing, cyanosis or edema and Yes no calf tenderness Psych Appearance: grossly normal and well kempt Mental Status: mental status grossly normal Speech and movement: Normal speech and movement present Affect: normal affect Coding Level of Care Code Est Pt Level 4 (36066) Complex EM visit Add On G2211 Diagnoses Shortness of breath after severe acute respiratory syndrome coronavirus 2 (SARS-CoV-2) vaccination R06.02; T50.B95A History of elevated antinuclear antibody (TREV) Z87.898 Assessment & Plan Assessment & Plan (1) Shortness of breath after severe acute respiratory syndrome coronavirus 2 (SARS-CoV-2) vaccination: Code(s): R06.02 - Shortness of breath; T50.B95A - Adverse effect of other viral vaccines, initial encounter Plan: Ordered pulmonary function test with a methacholine challenge. Continue with Symbicort as directed, gargle after use. If no improvement of symptoms, will obtain pulmonary consult (2) History of elevated antinuclear antibody (TREV): Code(s): Z87.898 - Personal history of other specified conditions Category: Medical Plan: Ordered a repeat TREV reflex titer and pattern Orders: Orders PFT pulmonary function test 12/27/24 R06.02 - Shortness of breath, T50.B95A - Adverse effect of other viral vaccines, initial encounter RT pft w methacholine 12/27/24 R06.02 - Shortness of breath, T50.B95A - Adverse effect of other viral vaccines, initial encounter TREV Reflex Titer and Pattern 12/27/24 Z87.898 - Personal history of other specified conditions
[2024-12-27 13:50] VITALS: BP 108/80; PULSE 61; RESP 17; TEMP 36.7; O2SAT 98; BMI 19.6
--- OUTSIDE RECORDS SUMMARY | 2024-12-27 15:49 | XMS_ITS | Clinical Summary ---
Author Organization [facility] Address [address] [place] [phone] Phone Care Team Providers Care Mechanical Systems Designer Name Role Phone Neva Rucker MD Primary [...] topic Medical Devices Not on file Insurance [facility] [place] [address] [place] [address] [place] [address] [place] [address] ACO [facility] Care Teams Mechanical Systems Designer Relationship Specialty Start Date End Date Neva Rucker MD [address] [address] PCP - General Internal Medicine 11/09/23 Additional Source Comments The information contained in this document represents components of the legal health record. It is not the complete legal health record.[facility]
== END 2024-12-27 14:34 | disposition home or self-care (01) ==
LOC: HO.HMCC 13:41
PROVIDERS: PCP Internal Medicine; Visit Provider Internal Medicine
DX: R06.02 Shortness of breath (principal); T50.B95A Adverse effect of other viral vaccines, initial encounter; Z87.898 Personal history of other specified conditions

== ENCOUNTER 2025-02-05 10:26 | Outpatient (AMB) | payer OTHER, SELFPAY ==
--- OUTSIDE RECORDS SUMMARY | 2025-02-05 10:29 | XMS_ITS | Clinical Summary ---
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 Care Teams Groover And Striper Operator Relationship Specialty Start Date End Date Neva Rucker MD [address] [place] [address] PCP - General Internal Medicine 11/09/23 Additional Source Comments The information contained in this document represents components of the legal health record. It is not the complete legal health record.[facility]
--- NOTE | 2025-02-05 10:46 | A.OFFPC_ITS ---
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 Required: No Is last menstrual period known: Yes Last menstrual period: 01/22/25 Allergies Seasonal Allergies Allergy (Mild, Verified 02/05/25 11:07) runny nose, sneezing Medication List - Last Reconciled 02/05/25 by Neva Rucker MD albuterol sulfate 90 mcg/actuation 2 puffs inhalation Q4-6H PRN albuterol sulfate 1.25 mg (3 mL) inhalation QID PRN budesonide-formoterol 80-4.5 mcg/actuation (Symbicort) 1 inh inhalation BID cholecalciferol (vitamin D3) 1,250 mcg PO QWEEK 3 months clotrimazole-betamethasone 1-0.05 % 1 appl topical BID 10 days hydroxyzine HCl 10 mg PO TID PRN ibuprofen 600 mg PO Q8H PRN ketoconazole 2% 1 appl topical BID lamotrigine mg PO montelukast 10 mg PO DAILY nebulizers (AeroEclipse II Nebulizer) As directed every 6 hours as needed for episodes of wheezing and bronchospasm Tobacco use date assessed: 12/27/24 Dental Screening Dental Screen Date: 12/27/24 Did you have a dental visit in the last 12 months?: No Did you have a dental problem in the last 6 months where you did not have access to dental care?: No Was dental information given to patient?: Patient has dentist HPI Annual PE HPI Details 24-year-old lady with a history of anxie ty, depression, scoliosis, POTS, mild intermittent asthma presenting here today for her physical exam. The patient reports experiencing severe anxiety nearly every day, characterized by nervousness, inability to control worrying, and trouble relaxing. She has been taking hydroxyzine for anxiety, but it is no longer effective. The patient has a history of bipolar disorder, diagnosed following a hospitalization for a suicide attempt. The patient also has a history of asthma, which has improved but still requires the use of an inhaler more than once every two days. She has been using Symbicort and albuterol, but cost and insurance coverage issues have affected her ability to consistently obtain these medications. The patient has a history of vitamin D deficiency, with a previous level of 15 ng/mL, and has not been taking prescribed supplements due to cost. She has been advised to take 5000 IU of vitamin D every other day to improve her levels. She is up to date with her Pap smear, with the next appointment scheduled in March. She plans to receive a flu vaccination soon, but has encountered issues with insurance coverage for the COVID-19 vaccine. [facility] Medical History (Updated 02/05/25 @ 11:16 by Neva Rucker MD) Bipolar disorder Elevated antinuclear antibody (TREV) level History of elevated antinuclear antibody (TREV) Vitamin D deficiency Urticaria Tinea cruris Family history of thyroid disorder Intermittent palpitations Mild intermittent asthma COVID-19 Asthma Chromosomal abnormality Leg length discrepancy Scoliosis Dysmenorrhea Vasovagal syncope Surgical History No pertinent past surgical history Family History Mother No problems noted. Father No problems noted. Brother ADHD Sister Chronic mental disorder ADHD Mental health disorder Maternal Grandmother Cancer Mental health disorder Paternal Grandfather Substance use disorder Paternal Grandmother Substance use disorder Maternal Uncle Mental health disorder Social History Household Members: Family Housing: House Alcohol intake: never Patient Tobacco Use Status: Never used Tobacco e-Cigarette/Vaping Use: Never Used Substance Use Type: Marijuana Advance Directives Date on File: 10/08/23 service: No Current occupational status: employed Cognitive needs: No Hearing needs: No Vision needs: Yes Female Reproductive History Menstrual Age of Menarche: 14 Date of last menstrual period: 01/22/25 Questionnaire PHQ-9 Over the last 2 weeks, how often have you been bothered by any of the following problems? 1. Little interest or pleasure in doing things: not at all 2. Feeling down, depressed, or hopeless: not at all 3. Trouble falling or staying asleep, or sleeping too much: more than half the days 4. Feeling tired or having little energy: several days 5. Poor appetite or overeating: more than half the days 6. Feeling bad about yourself - or that you are a failure or have let yourself or your family down: not at all 7. Trouble concentrating on things, such as reading the newspaper or watching television: not at all 8. Moving or speaking so slowly that other people could have noticed. Or the opposite - being so fidgety or restless that you have been moving around a lot more than usual: not at all 9. Thoughts that you would be better off or of hurting yourself in some way: not at all Total score: 5 Depression Screening Interpretation: Negative Depression Screening Done: Yes Source: Developed by Drs. Lenny Hurst, Camille Blunt, Juan Ly and colleagues, with an educational alisa from [employer]. Thrive Questionnaire Date Thrive assessed: 12/13/24 I am a: Patient What is your living situation today?: I have a steady place to live Within the past 12 months, did the food you bought not last and you didn't have the money to get more?: Sometimes True Within the past 12 months, did you worry whether your food would run out before you got money to buy more?: Never true Do you have trouble paying for medicines?: No Do you have trouble getting transportation to medical appointments?: No Do you have trouble paying your heating and electricity bill?: No Do you have trouble taking care of your child, family member or friend?: No Do you have trouble with day-to-day activities such as bathing, preparing meals, shopping, managing finances, etc.?: No Are you currently unemployed and looking for a job?: No Are you interested in more education?: No Currently or been in a relationship where the following occur: No concerns reported THRIVE Score: 1 AUDIT C Alcohol Use Questionnaire (AUDIT-C) 1. How often do you have a drink containing alcohol?: Monthly or less 2. How many drinks containing alcohol do you have on a typical day when you are drinking?: 1 or 2 3. How often do you have six or more drinks on one occasion?: Less than monthly Total Score: 2 PATRICK-7 AMB Questionnaire PATRICK-7 Date PATRICK - 7 assessed: 02/05/25 Feeling nervous, anxious, or on edge: 3 = Nearly every day Not being able to stop or control worryin = Nearly every day Worrying too much about different things: 3 = Nearly every day Trouble relaxin = Nearly every day Being so restless that it is hard to sit still: 3 = Nearly every day Becoming easily annoyed or irritable: 3 = Nearly every day Feeling afraid as if something awful might happen: 2 = More than half the days Total PATRICK-7 score (0-4 normal; 5-9 mild; 10-14 moderate; 15-21 severe): 20 Source: Developed by Drs. Lenny Hurst, Camille Blunt, Juan Ly and colleagues, with an educational alisa from [employer]. PATRICK-7 Assessment Billing PATRICK-7 Assessment Tool: PATRICK-7 Assessment 06439 (has an appointment to see her therapist at [facility] in am and psychiatrist on 02/23/25) Review of Systems Const All systems reviewed & are unremarkable except as noted in HPI and below Eyes Reports no additional complaints ENT Reports no additional complaints Card Denies chest pain, Denies rapid heart rate, Denies irregular heart rhythm, Denies lightheadedness and Denies dyspnea Resp Denies chest congestion, Denies cough and Denies dyspnea GI Reports no additional complaints Reports no additional complaints Musc Details: Recurrent back pain due to scoliosis Skin/Breast Reports as per HPI Neuro Reports no additional complaints Psych Reports no additional complaints Endo Reports no additional complaints Veto/Lymph Reports no additional complaints Aller/Immun Reports no additional complaints Physical exam (Primary Care) Vital Signs: Last Vital Signs Temp 98.3 F 02/05/25 10:56 Pulse 67 02/05/25 10:56 Resp 16 02/05/25 10:56 BP 110/80 02/05/25 10:56 Pulse Ox 98 02/05/25 10:56 Oxygen Delivery Method Room Air 02/05/25 10:56 BMI result Body Mass Index 20.1 Tobacco/Smoking Status: Tobacco use Status Tobacco use date assessed 12/27/24 02/05/25 10:46 Patient Tobacco Use Status Never used Tobacco 02/05/25 10:46 e-Cigarette/Vaping Use Never Used 02/05/25 10:46 PHQ-9: PHQ-9 Score PHQ-9: Total score 5 02/05/25 11:31 Depression Screening Interpretation: Negative Thrive Assessment: Date of Thrive Assessment Date Thrive assessed 12/13/24 02/05/25 10:46 Currently or been in a relationship where the following occur: No concerns reported Const General: no acute distress and alert Orientation/consciousness: patient oriented x3 HENMT Ears: external ears normal General nose exam: Normal external nose present Mouth: Normal oral and palatal mucosa present, oropharynx normal and moist mucous membranes Eyes General: appearance normal, both eyes and all related structures Neck Neck: Yes full ROM, Yes no lymphadenopathy and Yes supple Chest Breast/axilla palpation: normal palpation of the breasts Resp Effort & Inspection: normal respiratory effort and able to speak in complete sentences Auscultation: clear to auscultation bilaterally Cardio Rate: regular rate Rhythm: regular rhythm Heart sounds: S1 normal heart sound present and S2 normal heart sound present GI Palpation (GI): Soft to palpation, nontender and no masses Auscultation: normal bowel sounds General: Yes no CVA tenderness and Yes deferred (sees her OBGYN) Back/Spine/Pelvis Back: no CVA tenderness and No back tenderness Skin General skin exam: no rashes or lesions noted Neuro General: patient oriented x3, gait normal, tone normal, moves all extremities, Normal light touch and pain sensation and no focal motor deficits Cranial nerves: Yes CN's II-XII intact bilaterally Cognition (Neuro): normal cognition Extrem General: Yes full ROM, Yes no joint enlargement, Yes no clubbing, cyanosis or edema and Yes no calf tenderness Psych Appearance: grossly normal and well kempt Mental Status: mental status grossly normal Speech and movement: Normal speech and movement present Affect: normal affect Results Reviewed Results Reviewed: Name: Jocelyn Bowens Age/Sex: 24/F : 2000 Unit#: [id number] Attend Dr: Josie Gilmore DO Re12/19/24 Status: [facility]P [facility] Disch: SPEC : [id number] ALISON: 12/19/24 STATUS: COMP REQ : [id number] RECD: 12/19/[address]: Ilia Mills COMP: 12/19/24 ENTERED: 12/19/[address]: Physician,Unknown ORDERED: CBC Auto Diff Test Result Flag Reference WBC 8.1 4.8-10.8 X10*3/uL RBC 5.08 4.20-5.50 X10*6/uL HGB 13.6 12.0-16.0 g/dl HCT 40.2 37.0-47.0 % MCV 79.1 L 80.0-98.0 fL MCH 26.8 L 27.0-33.0 pg MCHC 33.8 31.0-35.0 g/dl RDW 13.8 11.0-16.0 % PLT 237 160-400 X10*3/uL MPV 10.7 9.4-12.3 fL Neut Pct Auto 81.8 H 45-73 % ImGran Pct Auto 0.2 0.0-0.4 % Lymp Pct Auto 12.4 L 20-40 % Nash Pct Auto 5.4 2-11 % Eos Pct Auto 0.0 0-4 % Baso Pct Auto 0.2 0-2 % NRBC Pct Auto 0.0 0.0-0.2 /100WBC ANC Neut Abs # 6.7 2.0-8.3 x10*3/uL ImGran Abs Auto 0.02 0.00-0.03 X10*3/uL Lymph Abs Auto 1.0 L 1.2-4.9 X10*3/uL Nash Abs Auto 0.4 0.1-1.2 X10*3/uL Eos Abs Auto 0.0 0.0-0.4 X10*3/uL Baso Abs Auto 0.0 0.0-0.2 X10*3/uL NRBC Abs Auto 0.000 0.0-0.012 X10*3/uL Name: Kwan,Serenity Age/Sex: 24/F : 2000 Unit#: [id number] Attend Dr: Josie Gimlore DO Re12/19/24 Status: DEP [facility] Disch: SPEC : [id number] ALISON: 12/19/24 STATUS: COMP REQ : [id number] RECD: 12/19/[address]: Ilia Mills COMP: 12/19/24 ENTERED: 12/19/[address]: Physician,Unknown ORDERED: CMP Test Result Flag Reference Sodium 140 135-145 mmol/L Potassium 4.3 3.3-5.1 mmol/L CL 108 96-108 mmol/L CO2 25 22-29 mmol/L Gap 11 L 12-20 BUN 17 H 9-16 mg/dL Creat 0.73 0.5-1.4 mg/dL Estimated CrCl 78.0 Provided height and weight: 147.32 cm, 43.3 kg. eGFR (calculated from the MDRD study equation) and eCrCl (calculated from the Cockcroft-Gault equation) are based on different parameters and may not yield comparable results. If eCrCl result is absurd, please check patient's height/weight. eGFR > 60 Chronic Kidney Disease: Estimated GFR < 60 mL/min/1.73m2 Severe Kidney Disease: Estimated GFR < 15 mL/min/1.73m2 Glucose, Random 98 60-115 mg/dL CA 8.9 8.4-10.2 mg/dL Total Bili 0.2 0.0-1.0 mg/dL AST (GOT) 19 5-31 U/L ALT (GPT) 19 0-31 U/L Protein, Total 6.8 6.5-8.0 g/dL Alb 4.4 3.5-5.0 g/dL Alk Phos 68 39-117 U/L Name: Jocelyn Bowens Age/Sex: 24/F : 2000 Unit#: [id number] Attend Dr: Neva Rucker MD Re11/01/24 Status: DEP [facility] Disch: SPEC : [id number] ALISON: 11/01/24 STATUS: COMP REQ : [id number] RECD: 11/01/24 [facility] DR: Neva Rucker MD COMP: 11/01/242 ENTERED: 11/01/24 [facility] DR: ORDERED: Glu Fasting, Lipid Panel, Vitamin D 25-OH Test Result Flag Reference FBS 83 60-99 mg/dL Triglyceride 48 <150 mg/dL Desirable Triglyceride: less than 150 mg/dL Borderline High Triglyceride 150-199 mg/dL High Triglyceride: 200-499 mg/dL Very High Triglyceride: greater than or equal to 5OO mg/dL Cholesterol 126 <200 mg/dL Desirable Cholesterol: less than 200 mg/dL Borderline High Cholesterol: 200-239 mg/dL High Cholesterol: greater than 239 mg/dL LDL Calculated 64 <100 mg/dL Desirable LDL: less than 100 mg/dL Near Optimal/Above Optimal LDL: 110-129 mg/dL Borderline High LDL: 130-159 mg/dL High LDL: 160-189 mg/dL Very High LDL: greater than or equal to 190 mg/dL HDL 53 >40 mg/dL Desirable HDL: greater than 40 mg/dL Note: This HDL assay may give artificially low results in patients with liver disease. Vitamin D 25-OH 15.5 L >30 ng/mL Health Based Reference Values* < 20 ng/mL Deficient 20-30 ng/mL Insufficient > 30 ng/mL Sufficient Coding Level of Care Code Est Pt Prev Care 18-39y([id number]) Diagnoses Mild intermittent asthma without complication J45.20 Asthma complication type: uncomplicated Anxiety F41.9 Vitamin D deficiency E55.9 Annual visit for general adult medical examination with abnormal findings Z00. Additional Codes PATRICK-7 Assessment Billing - PATRICK-7 Assessment Tool: PATRICK-7 Assessment [id number] ([id number]) Assessment & Plan Assessment & Plan (1) Mild intermittent asthma: Comment: Utilizing Symbicort with good effect. Infrequent use of albuterol sulfate Code(s): J45.20 - Mild intermittent asthma, uncomplicated Category: Medical Qualifiers: Asthma complication type: uncomplicated Qualified Code(s): J45.20 - Mild intermittent asthma, uncomplicated (2) Anxiety: Comment: Has establish care with psychiatry. Taking aripiprazole 7.5 mg p.o. daily and hydroxyzine 25 mg t.i.d. p.r.n.., murali Mendoza Code(s): F41.9 - Anxiety disorder, unspecified Category: Medical (3) Vitamin D deficiency: Code(s): E55.9 - Vitamin D deficiency, unspecified Category: Medical (4) Annual visit for general adult medical examination with abnormal findings: Code(s): Z00.01 - Encounter for general adult medical examination with abnormal findings Plan During the visit, we discussed the patient's severe anxiety and the ineffectiveness of her current medication, hydroxyzine. I advised her to consult with her psychiatrist about alternative medications on her upcoming appointment with our later this month. We also reviewed her asthma management, emphasizing the importance of consistent medication use despite insurance challenges. Prescription sent for generic Symbicort. For her vitamin D deficiency, I recommended taking 5000 IU every other day and suggested exploring cost- effective options. We discussed her preventative care, including her up-to-date Pap smear and plans for a flu vaccination. I advised her to contact her insurance provider to clarify coverage for the COVID-19 vaccine. Patient was informed and verbally consented to the use of an ambient scribe for clinic note documentation during this visit. Medications: New budesonide-formoterol 160-4.5 mcg/actuation (Symbicort) 2 puffs inhalation Q12H 10.2 grams 2RF J45.20 - Mild intermittent asthma, uncomplicated Refilled cholecalciferol (vitamin D3) 1,250 mcg PO QWEEK 13 caps 0RF 3 months E55.9 - Vitamin D deficiency, unspecified albuterol sulfate 90 mcg/actuation 2 puffs inhalation Q4-6H PRN 8.5 grams 0RF shortness of breath or wheezing Discontinued budesonide-formoterol 80-4.5 mcg/actuation (Symbicort) Discontinued Reason: Doctor's Order 1 inh inhalation BID 10.2 grams 0RF
[2025-02-05 10:56] VITALS: BP 110/80; PULSE 67; RESP 16; TEMP 36.8; O2SAT 98; BMI 20.1
== END 2025-02-05 11:31 | disposition home or self-care (01) ==
LOC: HO.HMCC 10:27
PROVIDERS: PCP Internal Medicine; Visit Provider Internal Medicine
DX: J45.20 Mild intermittent asthma, uncomplicated (principal); F41.9 Anxiety disorder, unspecified; E55.9 Vitamin D deficiency, unspecified; Z00.01 Encounter for general adult medical examination with abnormal findings; Z00.00 Encounter for general adult medical examination without abnormal findings

== ENCOUNTER → 2025-02-05 10:26 | Outpatient (BNVA) | payer OTHER, SELFPAY | PROVIDERS: PCP Internal Medicine; Visit Provider Internal Medicine | DX: Z00.01 Encounter for general adult medical examination with abnormal findings (principal); J45.20 Mild intermittent asthma, uncomplicated; F41.9 Anxiety disorder, unspecified; E55.9 Vitamin D deficiency, unspecified; Z13.31 Encounter for screening for depression; Z13.39 Encounter for screening examination for other mental health and behavioral disorders | CPT/HCPCS: 96127; 99395 ==

== ENCOUNTER 2025-03-08 09:04 | Outpatient (REF) | payer OTHER, SELFPAY ==
--- NOTE | 2025-03-08 09:08 | PFT_ITS ---
Indication: Dyspnea Spirometry FEV1 to FVC 88%; FEV1 2.91 L; FVC 3.33 L. there is a significant response to bronchodilators noted. Lung Volumes Total lung capacity 96% predicted; residual volume 76% predicted Diffusion Capacity DLCO 92% predicted Comparisons None Interpretation No obstructive nor restrictive ventilatory defects identified. There is a significant response to bronchodilators noted and the patient does appear to have some degree of small airways disease which is suggestive of asthma. Lung volumes and diffusing capacity are within normal limits. If asthma is in the differential a methacholine challenge will be helpful in assessing for hyperreactive airways. Clinical correlation warranted. MTDD
[2025-03-08 09:52] VITALS: PULSE 71
== END 2025-03-08 09:05 | disposition home or self-care (01) ==
LOC: HO.RESP 09:04
PROVIDERS: PCP Internal Medicine; Visit Provider Internal Medicine
DX: R06.02 Shortness of breath (principal); R06.00 Dyspnea, unspecified; T50.B95A Adverse effect of other viral vaccines, initial encounter
CPT/HCPCS: 94060; 94640; 94727; 94729

== ENCOUNTER → 2025-03-08 09:08 | Outpatient (BNV) | payer OTHER, SELFPAY | PROVIDERS: PCP Internal Medicine; Visit Provider Hospitalist | DX: R06.02 Shortness of breath (principal) | CPT/HCPCS: 94060; 94727; 94729 ==

== ENCOUNTER 2025-04-21 08:46 | Emergency (ER) | payer OTHER, SELFPAY ==
--- NOTE | ~2025-04-21 | CT_ITS ---
CLINICAL HISTORY: + unable to take a deep breath CT angiography chest with contrast. 3D Postprocessing. Comparison: None provided Findings: The heart is normal size. RV/LV ratio is normal. The thoracic aorta is normal caliber. No pulmonary artery filling defects. The visualized thyroid and mediastinum are unremarkable. No consolidation or effusion. The visualized upper abdomen is unremarkable. No acute fractures. 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 IMPRESSION: 1. No pulmonary embolus. This document has been electronically signed by: Alan Ordonez MD on 04/21/2025 12:28:44
--- NOTE | ~2025-04-21 | XR_ITS ---
CLINICAL HISTORY: sob 2 view chest x-ray Comparison: 12/15/2024 Findings: No consolidation or effusion. Heart size is normal. No acute fracture. IMPRESSION: 1. No acute findings. This document has been electronically signed by: Alan Ordonez MD on 04/21/2025 11:06:27
[2025-04-21 09:02] VITALS: BP 126/68; PULSE 68; RESP 16; TEMP 36.6; O2SAT 99; BMI 28.4
[2025-04-21] MEDS: Albuterol Sulfate 2.5 MG, Albuterol/Iprat 2.5/0.5MG 3 ML 3 ML INHALE (09:33)
[2025-04-21 09:34] VITALS: PULSE 64; RESP 21; O2SAT 99
--- NOTE | 2025-04-21 09:46 | ED_ITS ---
HPI - General Adult General Chief complaint: General Medical Stated complaint: diff breathing, asthma Time Seen by Provider: 04/21/25 09:22 Source: patient Mode of arrival: ambulatory Limitations: no limitations History of Present Illness ED Provider: SARAH Lares HPI narrative: Chief Complaint: ?I?m short of breath.? History of Present Illness: The patient is a 25-year-old female with a history of postural orthostatic tachycardia syndrome (POTS) and asthma who presents to the emergency department with 2?3 days of progressively worsening shortness of breath and wheezing. She describes an inability to take a deep breath, mild associated chest discomfort, and reports that similar episodes have occurred in the past, typically responsive to breathing treatments. Previous ED evaluations for similar symptoms have been negative or unremarkable. 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 She denies fever, chills, nausea, vomiting, abdominal pain, headache, visual changes, dizziness, weakness, recent travel, and is not on control. She has a history of POTS and asthma, which are risk factors for respiratory complications. She is seeking further evaluation due to persistence of symptoms and concern for possible worsening of her underlying conditions. No history of recent medication changes or new exposures. She has not experienced palpitations, syncope, or lower extremity swelling. No history of deep vein thrombosis or pulmonary embolism. She is not currently taking any medications for asthma or POTS. No known drug allergies. She has not tried any home interventions prior to arrival. Related Data Home Medications ?Medication ?Instructions ?Recorded ?Confirmed ibuprofen 600 mg tablet 600 mg PO Q8H PRN 07/26/20 0 12/15/24 hydroxyzine HCl 10 mg tablet 10 mg PO TID PRN anxiety 12/13/24 12/15/24 lamotrigine 25 mg tablet mg PO 12/27/24 Previous Rx's ?Medication ?Instructions ?Recorded ketoconazole 2 % topical cream 1 appl topical BID #30 grams 10/08/23 clotrimazole-betamethasone 1 1 appl topical BID 10 day s #45 12/13/24 %-0.05 % topical cream grams montelukast 10 mg tablet 10 mg PO DAILY #90 tabs 11/25 albuterol sulfate 1.25 mg/3 mL 1.25 mg (3 mL) inhalati on QID PRN 12/15/24 solution for nebulization shortness of breath or wheez ing #75 mL nebulizers (AeroEclipse II #1 ea 12/18/24 Nebulizer) albuterol sulfate 90 mcg/actuation 2 puff inhalation Q 4-6H PRN 02/05/25 aerosol inhaler shortness of breath or wheez ing #8.5 grams budesonide-formoterol HFA 160 2 puff inhalation Q12H # 10.2 grams 02/05/25 mcg-4.5 mcg/actuation aerosol inhaler (Symbicort) cholecalciferol (vitamin D3) 1,250 1,250 mcg PO QWEEK 3 months #13 02/05/25 mcg (50,000 unit) capsule caps albuterol sulfate 90 mcg/actuation 2 inh inhalation Q4 -6H PRN 04/21/25 breath activated powder inhaler shortness of breath or wheezing #1 ea prednisone 20 mg tablet 20 mg PO DAILY 5 days #5 tab s 04/21/25 Allergies Allergy/AdvReac Type Severity Reaction Status Date / Time Seasonal Allergies Allergy Mild runny Verified 04/21/25 09:07 nose, sneezing Review of Systems 2 Review of Systems: Review of Systems: ? Constitutional: Denies fever, chills, night sweats, weight loss. ? Eyes: Denies visual changes, eye pain, redness, discharge. ? ENT: Denies sore throat, nasal congestion, rhinorrhea, ear pain. ? Cardiovascular: Positive for mild chest discomfort; denies palpitations, syncope, edema. ? Respiratory: Positive for shortness of breath, wheezing, difficulty taking a deep breath; denies cough, hemoptysis, pleuritic pain. ? GI: Denies nausea, vomiting, abdominal pain, diarrhea, constipation. ? : Denies dysuria, hematuria, frequency, urgency. ? Musculoskeletal: Denies joint pain, muscle aches, swelling. ? Neurologic: Denies headache, dizziness, weakness, numbness, tingling, focal deficits. ? Skin: Denies rash, lesions, itching. ? Psychiatric: Denies anxiety, depression, suicidal or homicidal ideation. ? Endocrine: Denies polyuria, polydipsia, heat/cold intolerance. ? Hematologic: Denies easy bruising, bleeding. Yes all other systems are reviewed and are negative PMFSH Past Medical History Attestation statement: The following information was validated with the patient. Source: old records reviewed and nursing notes reviewed Medical History Bipolar disorder Elevated antinuclear antibody (TREV) level History of elevated antinuclear antibody (TREV) Vitamin D deficiency Urticaria Tinea cruris Family history of thyroid disorder Intermittent palpitations Mild intermittent asthma COVID-19 Asthma Chromosomal abnormality Leg length discrepancy Scoliosis Dysmenorrhea Vasovagal syncope Surgical History No pertinent past surgical history Family History Family History Mother No problems noted. Father No problems noted. Brother ADHD Sister Chronic mental disorder ADHD Mental health disorder Maternal Grandmother Cancer Mental health disorder Paternal Grandfather Substance use disorder Paternal Grandmother Substance use disorder Maternal Uncle Mental health disorder Social History Social History Household Members: Family Housing: House Alcohol intake: never Patient Tobacco Use Status: Never used Tobacco Smoked in Last 30 Days: No e-Cigarette/Vaping Use: Never Used Use of substances other than those prescribed or required for medical reasons: Yes Substance Use Type: Marijuana Advance Directives: Yes Advance Directives on File: Yes Advance Directives Date on File: 10/08/23 Do you have a plan to hurt others: No Plan Patient : No service: No Current occupational status: employed Cognitive needs: No Hearing needs: No Vision needs: Yes Physical Exam ED Exam Exam: Appearance: Alert.? Oriented X3.? No acute distress.? Head: Normocephalic, atraumatic, no step-offs or deformities Eyes: Pupils equal, round and reactive to light.? Neck: Normal inspection.? Neck supple.? CVS: Normal heart rate and rhythm.? Pulses normal.? Respiratory: No respiratory distress.? Breath sounds + mild expiratory wheezing b/l.? Abdomen: Soft and nontender.? Skin: Skin warm and dry.? Normal skin color.? Normal skin turgor.? Extremities: No lower extremity edema.? No calf ttp. 5/5 strength to bilateral upper and lower extremities Back: No midline tenderness, no C-spine tenderness, full range of motion, no CVA tenderness bilaterally Neuro: Oriented X 3.? No motor deficit.? No sensory deficit. CN 2-12 intact Vital Signs: Vital Signs - 24 hr 04/21/25 09:02 04/21/25 09:34 04/21/25 11:18 Temperature 97.8 F Pulse Rate 68 64 69 Respiratory Rate 16 21 H Blood Pressure 126/68 Pulse Oximetry 99 99 Oxygen Delivery Method Room Air Room Air 04/21/25 11:21 04/21/25 12:41 Temperature 98.1 F 0 F L Pulse Rate 81 68 Respiratory Rate 16 16 Blood Pressure 104/63 105/71 Pulse Oximetry 99 98 Oxygen Delivery Method Room Air Room Air BMI result Body Mass Index 28.4 vss Course Reevaluation(s) Reevaluation #1: CBC with leukopenia and thrombocytopenia. Chemistry with no acute electrolyte abnormalities needing intervention. EKG with sinus arrhythmia no ST elevations or inversions concerning for acute ischemia. D-dimer is negative. Time: 10:41 Reevaluation #2: CTA negative. Patient feeling better. Advised for her to follow up with PCP and pulmonology . Educated patient on diagnosis and treatment plan, answered all question, patient verbalizes understanding. At this time patient will be discharged home, advised to return with new or worsening symptoms. Educated on worrisome signs and symptoms and when to return. At this time I feel comfortable discharge home. Time: 12:44 Medications Administered Discontinued Medications Generic Name Dose Route Start Last Admin Trade Name Freq PRN Reason Stop Dose Admin Albuterol Sulfate 2.5 mg/ 0 mg 04/21/25 09:28 04/21/25 09:33 Albuterol/Ipratropium 3 ml INHALE 04/21/25 09:29 1 dose ONCE ONE Administration Iohexol 100 ml 04/21/25 12:02 04/21/25 12:02 Iohexol 350 Mg/Ml 100 Ml Infus..Btl IV 04/21/25 12:03 65 ml ONCE ONE Administration Medical Decision Making Medical Decision Making MDM Narrative: Assessment & Plan 25-year-old female with history of asthma and POTS presenting with shortness of breath and wheezing. Exam shows faint wheezes with otherwise benign findings. Differential diagnosis includes asthma exacerbation, viral respiratory illness (influenza, COVID-19, other viruses), POTS flare, pulmonary embolism, cardiac etiologies (arrhythmia, myocarditis), anxiety/panic attack, and less likely causes such as pneumonia or spontaneous pneumothorax. Problem #1: Asthma exacerbation / Shortness of breath Assessment: Episodic dyspnea with mild wheezing, similar to prior asthma flares. History of asthma and POTS increases risk for respiratory complications. No evidence of acute respiratory distress or hypoxia at this time. Plan: * Administer nebulized bronchodilator treatment per ED protocol. * Monitor response to therapy with serial pulse oximetry and clinical reassessment. * Obtain laboratory studies (CBC, BMP) to evaluate for infection, metabolic derangements, and underlying triggers. * Order EKG to assess for arrhythmia or cardiac involvement given chest discomfort and history of POTS. * Order D-dimer to rule out pulmonary embolism in the setting of unexplained dyspnea and risk factors. * Risk assessment: Patient at risk for respiratory failure, cardiac arrhythmia, and PE due to underlying conditions and acute symptoms. * Procedures performed: Nebulizer treatment administered, pulse oximetry monitoring, EKG performed and interpreted. * Counseling provided regarding diagnosis, rationale for testing, medication side effects (bronchodilators may cause tremor, palpitations), and importance of return precautions for worsening symptoms, chest pain, or new neurologic deficits. * Discharge/admission criteria: Patient may be discharged if symptoms resolve, oxygen saturation remains >94%, and no evidence of PE or cardiac arrhythmia. Admission indicated for persistent hypoxia, respiratory distress, abnormal EKG, or positive D-dimer requiring further workup. * Follow-up: Outpatient follow-up with primary care and pulmonology recommended within 1 week. Return to ED for worsening shortness of breath, chest pain, syncope, or other concerning symptoms. * Time spent: Problem #2: Possible viral respiratory illness Assessment: Recent exposure to influenza A?positive coworkers; viral etiology considered. No fever or upper respiratory symptoms at present. Plan: * Obtain viral respiratory panel (including influenza and COVID-19) to assess for acute infection. * Symptom management with supportive care (hydration, rest, antipyretics if fever develops). * Monitor for development of fever, cough, or other viral symptoms. * Risk assessment: Potential for progression to viral pneumonia or exacerbation of underlying asthma/POTS. * Counseling provided regarding infection control, symptom monitoring, and when to seek further care. * Discharge/admission criteria: Discharge if viral panel negative and symptoms mild; admit for hypoxia, respiratory distress, or positive viral panel with severe symptoms. * Follow-up: Outpatient follow-up and return precautions as above. Problem #3: POTS flare Assessment: History of POTS; symptoms may overlap with current presentation. No syncope or palpitations reported. Plan: * Monitor orthostatic vital signs and assess for POTS-related symptoms. * EKG to rule out arrhythmia. * Supportive care and education regarding POTS management. * Return precautions for syncope, palpitations, or worsening symptoms. Problem #4: Pulmonary embolism Assessment: Unexplained dyspnea; D-dimer ordered to rule out PE. Plan: * If D-dimer elevated, consider further imaging (CT pulmonary angiography). * Monitor for signs of hypoxia, tachycardia, or chest pain. * Return precautions for sudden worsening of symptoms. Problem #5: Cardiac causes (arrhythmia, myocarditis) Assessment: Mild chest discomfort; EKG ordered to evaluate for arrhythmia or myocarditis. Plan: * Interpret EKG and monitor for abnormal findings. * Return precautions for chest pain, palpitations, or syncope. * Patient followed by cardiology Medical Decision Making: High complexity due to multiple possible etiologies for acute dyspnea, need for diagnostic testing (labs, EKG, D-dimer, viral panel), risk of serious complications (respiratory failure, PE, arrhythmia), and need for close monitoring and counseling. All interventions and procedures are medically necessary to rule out life-threatening causes and guide appropriate management. Differential Diagnosis Differential Diagnoses: The differential diagnosis associated with the presentation includes Differential Diagnosis: * Asthma exacerbation: Most likely given history of asthma, episodic dyspnea, wheezing, and prior similar episodes responsive to bronchodilators. Supported by faint wheezes on exam. Lack of fever or infectious symptoms argues against infectious trigger, but viral illness may still precipitate exacerbation. * Viral respiratory illness (influenza, COVID-19, other viruses): Recent exposure to influenza A?positive coworkers increases risk. Absence of fever, cough, or upper respiratory symptoms makes this less likely, but viral infection can present atypically and may trigger asthma symptoms. * POTS flare: History of POTS; symptoms such as dyspnea and chest discomfort may overlap. No syncope or palpitations reported, which argues against a classic POTS episode, but orthostatic symptoms should be monitored. * Pulmonary embolism: Unexplained dyspnea warrants consideration, especially in young women, though absence of risk factors (no recent travel, no control, no history of DVT/PE) and lack of hypoxia or chest pain make this less likely. D-dimer ordered to rule out. * Cardiac etiologies (arrhythmia, myocarditis): Mild chest discomfort and history of POTS raise concern for arrhythmia or myocarditis. No palpitations, syncope, or abnormal exam findings, but EKG ordered for evaluation. * Anxiety/panic attack: Anxiety can cause dyspnea and chest discomfort, but patient denies anxiety and psychiatric symptoms. No acute distress noted. * Pneumonia: No fever, cough, or focal lung findings on exam. Less likely, but should be considered if symptoms progress or new findings emerge. * Spontaneous pneumothorax: Sudden onset dyspnea and chest discomfort could suggest pneumothorax, but exam is benign and no risk factors identified. * Other less likely causes: Consider metabolic derangements, anemia, or other systemic illnesses if initial workup is unrevealing. Admission/Observation Consideration of admission/observation: Escalation of care including admission/observation considered (possible ) Lab Data MDM Lab Attestation statement: I reviewed the patient's lab results. 04/21/25 09:58 04/21/25 09:58 Labs: Lab Results 04/21/25 04/21/25 Range/Units 09:13 09:58 WBC 4.2 L (4.8-10.8) X10*3/uL RBC 5.25 (4.20-5.50) X10*6/uL Hgb 13.8 (12.0-16.0) g/dl Hct 41.2 (37.0-47.0) % MCV 78.5 L (80.0-98.0) fL MCH 26.3 L (27.0-33.0) pg MCHC 33.5 (31.0-35.0) g/dl RDW 12.8 (11.0-16.0) % Plt Count 126 L D (160-400) X10*3/uL MPV 10.4 (9.4-12.3) fL Immature Gran % (Auto) 0.0 (0.0-0.4) % Neut % (Auto) 24.8 L (45-73) % Lymph % (Auto) 67.1 H (20-40) % Bryan % (Auto) 6.0 (2-11) % Eos % (Auto) 1.9 (0-4) % Baso % (Auto) 0.2 (0-2) % Lymph # (Auto) 2.8 (1.2-4.9) X10*3/uL Bryan # (Auto) 0.3 (0.1-1.2) X10*3/uL Eos # (Auto) 0.1 (0.0-0.4) X10*3/uL Baso # (Auto) 0.0 (0.0-0.2) X10*3/uL Abs Immat Gran (auto) 0.00 (0.00-0.03) X10*3/uL Absolute Neuts (auto) 1.0 L (2.0-8.3) x10*3/uL Absolute Nucleated RBC 0.000 (0.0-0.012) X10*3/uL Nucleated RBC % (auto) 0.0 (0.0-0.2) /100WBC Smear Tech's Comments VERIFIED D-Dimer High Sensitivty < 150 NG/ML Sodium 142 (135-145) mmol/L Potassium 3.6 (3.3-5.1) mmol/L Chloride 110 H (96-108) mmol/L Carbon Dioxide 25 (22-29) mmol/L Anion Gap 11 L (12-20) BUN 11 (9-16) mg/dL Creatinine 0.59 (0.5-1.4) mg/dL Estim Creat Clear Calc 69.5 Estimated GFR > 60 Random Glucose 102 (60-115) mg/dL Calcium 8.8 (8.4-10.2) mg/dL Total Bilirubin 0.1 (0.0-1.0) mg/dL AST 19 (5-31) U/L ALT 17 (0-31) U/L Alkaline Phosphatase 57 (39-117) U/L Troponin I High Sens < 2.7 (<3.5-17.0) ng/L Total Protein 6.6 (6.5-8.0) g/dL Albumin 4.2 (3.5-5.0) g/dL Influenza Type A (PCR) NEGATIVE (Negative) Influenza Type B (PCR) NEGATIVE (Negative) RSV RNA Qual (PCR) NEGATIVE (Negative) SARS-CoV-2 RNA (RT-PCR) NEGATIVE (Negative) Independent Interpretation I performed an independent interpretation of an: EKG (Vent. Rate : 70 BPM Atrial Rate : 70 BPM P-R Int : 128 ms QRS Dur : 74 ms QT Int : 388 ms P-R-T Axes : 46 59 37 degrees QTcB Int : 419 ms Sinus rhythm with marked sinus arrhythmia Otherwise normal ECG When compared with ECG of 19-Dec-2024 17:23, No significant sherley) and Plain X-Ray Radiology Impression Discussion of test interpretation with radiology: I have reviewed the radiologist's reading. Independent Historian Clinical information obtained from an independent historian. History obtained from or confirmed by: Parent (Mother ) External Record Review External record reviewed: Inpatient record, Office record, Outpatient record, Prior outpatient labs, Prior outpatient radiology, Primary care record and Outside ED record Chronic Conditions Patient?s care impacted by: Other (see hpi ) Social Determinants Patient?s care significantly limited by Social Determinants of Health including: Other Social Determinant of Health Critical Care Time Critical Care Time Critical Care Time: Yes Total Critical Care Time: 35 Attestation: I attest to this time spent taking care of the patient, obtaining history, physical, reviewing labs, imaging, treatment of patients condition +/- specialist/hospitalist consult +/- procedure Discharge Plan Discharge Clinical Impression: Wheezing, Shortness of breath Patient Disposition: Home, Self-Care Instructions: Asthma (DC) Additional Instructions: Take your medications as prescribed. If you were prescribed antibiotics today, it is important that you take your medication to their entirety, do not skip any doses, do not finish them early. Follow-up with your primary care provider this week. Return to the emergency department with new or worsening symptoms. In case of emergency call 911 Prescriptions: New albuterol sulfate 90 mcg/actuation aerosol powdr breath activated 2 inh inhalation Q4-6H PRN (Reason: shortness of breath or wheezing) Qty: 1 0RF prednisone 20 mg tablet 20 mg PO DAILY 5 Days Qty: 5 0RF No Action albuterol sulfate 1.25 mg/3 mL solution for nebulization 1.25 mg inhalation QID PRN (Reason: shortness of breath or wheezing) Qty: 75 0RF (DME) nebulizers [AeroEclipse II Nebulizer] Misc See Rx Instructions .Route Qty: 1 0RF Rx Instructions: As directed every 6 hours as needed for episodes of wheezing and bronchospasm ketoconazole 2 % cream 1 appl topical BID Qty: 30 0RF ibuprofen 600 mg tablet 600 mg PO Q8H PRN lamotrigine 25 mg tablet PO cholecalciferol (vitamin D3) 1,250 mcg (50,000 unit) capsule 1,250 mcg PO QWEEK 90 Days Qty: 13 0RF albuterol sulfate 90 mcg/actuation HFA aerosol inhaler 2 puff inhalation Q4-6H PRN (Reason: shortness of breath or wheezing) Qty: 8.5 0RF budesonide-formoterol [Symbicort] 160-4.5 mcg/actuation HFA aerosol inhaler 2 puff inhalation Q12H Qty: 10.2 2RF hydroxyzine HCl 10 mg tablet 10 mg PO TID PRN (Reason: anxiety) clotrimazole-betamethasone 1-0.05 % cream 1 appl topical BID 10 Days Qty: 45 0RF montelukast 10 mg tablet 10 mg PO DAILY Qty: 90 1RF Referrals: [facility] [place] [facility] [Provider Group, Pulmonology] - 1 week Neva Rucker MD [Primary Care Provider, Internal Medicine] Stand Alone Forms: Work/School Release Interventions: ED Discharge Assessment Last Done: 04/21/25 12:41 Discharge Date/Time: 04/21/25 12:42 Print Language: Azeri
--- OUTSIDE RECORDS SUMMARY | 2025-04-21 09:50 | XMS_ITS | Clinical Summary ---
Author Organization [facility] Address [address] [place] [phone] Phone Care Team Providers Care Education Reviewer Name Role Phone Neva Rucker MD Primary [...] topic Medical Devices Not on file Insurance 18 [facility] [address] [place] [id number] [facility] [employer] [facility] [employer] Care Teams Education Reviewer Relationship Specialty Start Date End Date Neva Rucker MD 1959 [facility] [place] [address] PCP - General Internal Medicine 11/09/23 Additional Source Comments The information contained in this document represents components of the legal health record. It is not the complete legal health record.[facility]
[2025-04-21 09:55] LABS: Resp Syncy Virus RNA Qual PCR NEGATIVE (Negative); SARS COV2 PCR INHOUSE NEGATIVE (Negative)
--- NOTE | 2025-04-21 09:57 | ECG_ITS ---
Test Reason : SOB Blood Pressure : */* mmHG Vent. Rate : 70 BPM Atrial Rate : 70 BPM P-R Int : 128 ms QRS Dur : 74 ms QT Int : 388 ms P-R-T Axes : 46 59 37 degrees QTcB Int : 419 ms Sinus rhythm with marked sinus arrhythmia Otherwise normal ECG When compared with ECG of 19-Dec-2024 17:23, No significant change was found Referred By: Traci Lares Electronically Signed By: ELZBIETA GARCIA MD
[2025-04-21 10:08] LABS: Hematocrit 41.2 % (37.0-47.0); Hemoglobin 13.8 g/dl (12.0-16.0); Imm Gran Abs Auto 0.00 X10*3/uL (0.00-0.03); Imm Gran Pct Auto 0.0 % (0.0-0.4); Lymphocytes Absolute Auto 2.8 X10*3/uL (1.2-4.9); MANUAL DIFF FLAG SCAN; Mean Corpuscular HGB Conc 33.5 g/dl (31.0-35.0); Mean Corpuscular Hemoglobin 26.3 pg (27.0-33.0); Mean Corpuscular Volume 78.5 fL (80.0-98.0); NRBC Abs Auto 0.000 X10*3/uL (0.0-0.012); NRBC Pct Auto 0.0 /100WBC (0.0-0.2); Red Blood Count 5.25 X10*6/uL (4.20-5.50); SCAN SMEAR FLAG 1; White Blood Count 4.2 X10*3/uL (4.8-10.8)
[2025-04-21 10:11] LABS: Platelet Count 126 X10*3/uL (160-400)
[2025-04-21 10:28] LABS: Alanine Aminotransferase 17 U/L (0-31); Albumin Level 4.2 g/dL (3.5-5.0); Alkaline Phosphatase 57 U/L (39-117); Anion Gap 11 (12-20); Aspartate Amino Transferase 19 U/L (5-31); Blood Urea Nitrogen 11 mg/dL (9-16); Calcium 8.8 mg/dL (8.4-10.2); Carbon Dioxide 25 mmol/L (22-29); Chloride 110 mmol/L (96-108); Creatinine Clr Calc Pharmacy 69.5; Estimated Glomerular Filt Rate > 60; Potassium 3.6 mmol/L (3.3-5.1); Sodium 142 mmol/L (135-145); Total Protein 6.6 g/dL (6.5-8.0)
[2025-04-21 10:36] LABS: D Dimer High Sensitivity < 150 NG/ML
[2025-04-21 11:17] LABS: Troponin-I High Sensitivity < 2.7 ng/L (<3.5-17.0)
[2025-04-21 11:18] VITALS: PULSE 69; O2SAT 99
[2025-04-21 11:21] VITALS: BP 104/63; PULSE 81; RESP 16; TEMP 36.7; O2SAT 99
[2025-04-21] MEDS: iohexoL 350 MG/ML 100 ML INFUS..BTL IV (12:02)
[2025-04-21 12:41] VITALS: BP 105/71; PULSE 68; RESP 16; TEMP -17.7; TEMP 0; O2SAT 98
== END 2025-04-21 12:42 | disposition home or self-care (01) ==
PROVIDERS: Physician Assistant; Emergency Provider Emergency Medicine; PCP Internal Medicine
DX: R06.02 Shortness of breath (principal); G90.A Postural orthostatic tachycardia syndrome [POTS]; J45.909 Unspecified asthma, uncomplicated; Z03.818 Encounter for observation for suspected exposure to other biological agents ruled out; Z79.899 Other long term (current) drug therapy
CPT/HCPCS: 36415; 71046; 71275; 80053; 84484; 85025; 85379; 87637; 93005; 94640; 99285; Q9967

== ENCOUNTER → 2025-04-21 09:20 | Outpatient (BNV) | payer OTHER, SELFPAY | PROVIDERS: Emergency Provider Emergency Medicine; PCP Internal Medicine; Visit Provider Specialist | DX: R06.02 Shortness of breath (principal) | CPT/HCPCS: 71046; 71275 ==

== ENCOUNTER → 2025-04-21 09:57 | Outpatient (BNV) | payer OTHER, SELFPAY | PROVIDERS: Emergency Provider Emergency Medicine; PCP Internal Medicine; Visit Provider Internal Medicine Cardiovascular Disease | DX: R06.02 Shortness of breath (principal) | CPT/HCPCS: 93010 ==